=== PATIENT | male | born 1965 | race Caucasian/White ===

== ENCOUNTER 2019-10-14 12:33 | Inpatient (IN) | payer OTHER ==
[2019-10-14 15:16] VITALS: BMI 29.0
--- NOTE | 2019-10-14 15:53 | HP ---
CIWA Score Nausea/Vomitin-No Nausea/No Vomiting Muscle Tremors: 4-Moderate,w/Arms Extend Anxiety: 2 Agitation: 4-Moderately Restless Paroxysmal Sweats: 4-Forehead w/Sweat Beads Orientation: 0-Oriented Tacttile Disturbances: 0-None Auditory Disturbances: 0-None Visual Disturbances: 2-Mild Sensitivity Headache: 3-Moderate CIWA-Ar Total Score: 19 - Admission Criteria OASAS Guidelines: Admission for Medically Managed Detox: Requires at least one of the followin. CIWA greater than 12 2. Seizures within the past 24 hours 3. Delirium tremens within the past 24 hours 4. Hallucinations within the past 24 hours 5. Acute intervention needed for co occurring medical disorder 6. Acute intervention needed for co occurring psychiatric disorder 7. Severe withdrawal that cannot be handled at a lower level of care (continued vomiting, continued diarrhea, abnormal vital signs) requiring intravenous medication and/or fluids 8. Admitting History and Physical - Smoking History Smoking history: Current every day smoker Have you smoked in the past 12 months: Yes Aproximately how many cigarettes per day: 6 - Alcohol/Substance Use Hx Alcohol Use: Yes Admission ROS S - HPI Allergies/Adverse Reactions: Allergies Allergy/AdvReac Type Severity Reaction Status Date / Time No Known Allergies Allergy Verified 12/11/17 17:06 History of Present Illness: PT HERE REQUESTING DETOX FROM ETOH USE , INTOXICATED, BRENDA 0.341 CURRENT DAILY USE 1 BOTTLE VODKA AND 12 BEERS, + W/D SEIZURES , LATEST USE TODAY . PMHX : PANCREATITIS , OA CELESTE HIPS Exam Limitations: Clinical Condition, Intoxication - Ebola screening Have you traveled outside of the country in the last 21 days: No (N) Have you had contact with anyone from an Ebola affected area: No - Review of Systems Constitutional: No Symptoms Reported EENT: reports: Other (READING GLASSES) Respiratory: reports: Cough (X 6 WEEKS), SOB with Exertion (ON OCCASION, DENIES CURRENT SYMPTOMS) Cardiac: reports: No Symptoms Reported GI: reports: No Symptoms Reported : reports: No Symptoms Reported Musculoskeletal: reports: No Symptoms Reported Integumentary: reports: No Symptoms Reported Neuro: reports: See HPI, Headache, Seizure, Tremors Endocrine: reports: No Symptoms Reported Psychiatric: reports: Agitated, Anxious, Disorientated Patient History - Patient Medical History Hx Anemia: No Hx Asthma: No Hx Chronic Obstructive Pulmonary Disease (COPD): No Hx Cancer: No Hx Cardiac Disorders: No Hx Congestive Heart Failure: No Hx Hypertension: No Hx Pacemaker: No Hx Seizures: Yes (alcohol related once in 2012) Hx Dementia: No Hx Diabetes: No Hx Gastrointestinal Disorders: No Hx Liver Disease: No Hx Genitourinary Disorders: No Hx Sexually Transmitted Disorders: No Hx Renal Disease (ESRD): No Hx Thyroid Disease: No Hx Human Immunodeficiency Virus (HIV): No (neg. 2011) Hx Hepatitis C: No Hx Depression: No Hx Suicide Attempt: No Hx Bipolar Disorder: No Hx Schizophrenia: No - Patient Surgical History Past Surgical History: Yes Hx Neurologic Surgery: No Hx Cataract Extraction: No Hx Cardiac Surgery: No Hx Lung Surgery: No Hx Breast Surgery: No Hx Breast Biopsy: No Hx Abdominal Surgery: No Hx Appendectomy: No Hx Cholecystectomy: No Hx Genitourinary Surgery: No Hx Section: No Hx Orthopedic Surgery: Yes (bilateral hip sx in 2011) Anesthesia Reaction: No - PPD History Date: 12/13/17 - Smoking Cessation Smoking history: Current every day smoker Have you smoked in the past 12 months: Yes Aproximately how many cigarettes per day: 6 Cigars Per Day: 0 Hx Chewing Tobacco Use: No Initiated information on smoking cessation: No - Substances abused Alcohol Substance route: Oral Frequency: Daily Amount used: 1 pint vodka/ 6pk beers Age of first use: 14 Date of last use: 10/14/19 Admission Physical Exam [facility] - Vital Signs Vital Signs: Vital Signs - 24 hr 10/14/19 14:06 Temperature 97.9 F Pulse Rate 83 Respiratory 18 Rate Blood Pressure 123/63 - Physical General Appearance: Yes: Disheveled, Moderate Distress, Severe Distress, Alcohol on Breath, Intoxicated, Tremorous, Sweating, Anxious HEENTM: Yes: EOMI, Hearing grossly Normal, Normocephalic, Normal Voice Respiratory: Yes: Chest Non-Tender, No Respiratory Distress, No Accessory Muscle Use, Rhonchi (CELESTE LUNG BARRY) Neck: Yes: No masses,lesions,Nodules, Trachea in good position Cardiology: Yes: Regular Rhythm, Regular Rate, S1, S2, Tachycardia Abdominal: Yes: Non Tender, Soft Musculoskeletal: Yes: Other (STAGGERING GAIT) Extremities: Yes: Non-Tender, Tremors, Erythema (REINA COMPLEXION) Neurological: Yes: Disoriented Integumentary: Yes: Warm - Diagnostic (1) Alcohol intoxication Current Visit: Yes Status: Acute Qualifiers: Complication of substance-induced condition: uncomplicated Qualified Code(s ): F10.920 - Alcohol use, unspecified with intoxication, uncomplicated Breathalyzer - Breathalyzer Breathalyzer: 0.341 Urine Drug Screen - Test Device Lot number: [id number] Expiration date: 04/29/21 - Control Is test valid?: Yes - Results Drug screen NEGATIVE: Yes Inpatient Rehab Admission - Rehab Decision to Admit Inpatient rehab admission?: No
[2019-10-14] MEDS ORDERED: MAG HYDROX/AL HYDROX/SIMETH 30 ML UNIT-DOSE CUP PO PRN (16:02)
[2019-10-14] MEDS ORDERED: MENTHOL/PHENOL 1 EACH UD MM PRN (16:02)
[2019-10-14] MEDS ORDERED: MAGNESIUM HYDROX 2400MG/30ML ORAL SUSPENSION 30 ML CUP PO PRN (16:02)
[2019-10-14] MEDS ORDERED: BISMUTH SUBSALICYLATE 524 MG/30 ML UD PO PRN (16:02)
[2019-10-14] MEDS ORDERED: guaiFENesin 200 MG/10 ML 10 ML UNIT-DOSE CUPS PO PRN (16:02)
[2019-10-14] MEDS ORDERED: ALBUTEROL SO4 2.5/IPRATROPIUM 0.5 INH SOL 3 ML VIAL.NEB. NEB PRN (16:02)
[2019-10-14] MEDS ORDERED: MAGNESIUM CITRATE 300 ML BOTTLE PO PRN (16:02)
[2019-10-14] MEDS ORDERED: IBUPROFEN 400 MG TABLET (FP) PO PRN (16:02)
[2019-10-14] MEDS ORDERED: hydrOXYzine PAMOATE 25 MG CAPSULE (FP) PO PRN (16:02)
[2019-10-14] MEDS ORDERED: ACETAMINOPHEN 325 MG TABLET (FP) PO PRN ×2 (16:02)
[2019-10-14] MEDS ORDERED: MELATONIN 5 MG TABLETS PO PRN (16:02)
[2019-10-14] MEDS ORDERED: chlordiazePOXIDE HCL 25 MG CAPSULE PO PRN (16:04)
[2019-10-14] MEDS: chlordiazePOXIDE HCL 25 MG CAPSULE PO SCH ×2 (17:03→22:39)
[2019-10-14] MEDS: THIAMINE HCL 100 MG TABLET (FP) PO SCH (22:39)
[2019-10-15] MEDS: chlordiazePOXIDE HCL 25 MG CAPSULE PO SCH ×4 (06:28→22:33)
[2019-10-15] MEDS: PRENATAL VITAMINS W/ FOLIC ACID TABLET (FP) PO SCH (11:32)
--- NOTE | 2019-10-15 11:32 | PN ---
BHS CIWA - CIWA Score Nausea/Vomitin-No Nausea/No Vomiting Muscle Tremors: 4-Moderate,w/Arms Extend Anxiety: 3 Agitation: 0-Normal Activity Paroxysmal Sweats: 2 Orientation: 0-Oriented Tacttile Disturbances: 1-Very Mild Itch/Numbness Auditory Disturbances: 0-None Visual Disturbances: 1-Very Mild Sensitivity Headache: 1-Very Mild CIWA-Ar Total Score: 12 BHS Progress Note (SOAP) Subjective: Patient is a 54 yo male with hx of alcohol dependence on librium detox protocol c/o of fatigues, shakes, chills Objective: 10/15/19 11:30 Vital Signs Temperature 97.5 F L 10/15/19 09:57 Pulse Rate 80 10/15/19 09:57 Respiratory Rate 18 10/15/19 09:57 Blood Pressure 143/96 10/15/19 09:57 O2 Sat by Pulse Oximetry (%) Labs pending Assessment: 10/15/19 11:32 Aox3 no acute distress + hands tremors d/t ETOH withdrawal full ROM no gait disturbance withdrawal sx Plan: increase fluids labs pending continue detox continue to monitor
[2019-10-15 11:35] LABS: HEMATOCRIT 38.1 % (35.4-49); HEMOGLOBIN 13.4 GM/dL (11.7-16.9); MCHC 35.1 g/dl (32.0-35.9); MEAN CELL VOLUME 99.7 fl (80-96); PLATELET COUNT 105 K/MM3 (134-434); RBC 3.82 M/mm3 (4.00-5.60); RDW 14.3 % (11.9-15.9); WHITE BLOOD COUNT 4.3 K/mm3 (4.0-10.0)
[2019-10-15 11:40] LABS: ALBUMIN 4.4 g/dl (3.4-5.0); BLOOD UREA NITROGEN 7.9 mg/dL (7-18); CALCIUM 9.7 mg/dL (8.5-10.1); CREATININE 0.7 mg/dL (0.55-1.3); POTASSIUM 3.7 mmol/L (3.5-5.1); TOT PROT 7.2 g/dl (6.4-8.2)
[2019-10-15] MEDS ORDERED: FLU VACCINE QUAD 60 MCG/0.5 ML (MDV 19-20) IM ONE (12:00)
[2019-10-15] MEDS ORDERED: PNEUMOC 13-VAL CONJ-DIP CRM/PF 0.5 ML DISP.SYRIN IM ONE (12:00)
[2019-10-15] MEDS ORDERED: PNEUMOCOCCAL 23 VACCINE 0.5 ML VIAL IM ONE (12:00)
[2019-10-15] MEDS: THIAMINE HCL 100 MG TABLET (FP) PO SCH (22:33)
[2019-10-16] MEDS: chlordiazePOXIDE HCL 25 MG CAPSULE PO SCH ×4 (05:21→22:48)
[2019-10-16] MEDS ORDERED: cloNIDine HCL 0.1 MG TABLET PO ONE (09:50)
[2019-10-16] MEDS: PRENATAL VITAMINS W/ FOLIC ACID TABLET (FP) PO SCH (10:09)
[2019-10-16] MEDS ORDERED: TRIMETHOBENZAMIDE HCL 200MG/2ML INJ IM ONE (11:19)
[2019-10-16] MEDS ORDERED: ONDANSETRON *ODT* 4 MG TABLET SL PRN (11:20)
--- NOTE | 2019-10-16 11:23 | PN ---
S CIWA - CIWA Score Nausea/Vomitin-No Nausea/No Vomiting Muscle Tremors: 3 Anxiety: 3 Agitation: 3 Paroxysmal Sweats: 2 Orientation: 0-Oriented Tacttile Disturbances: 0-None Auditory Disturbances: 0-None Visual Disturbances: 0-None Headache: 0-None Present CIWA-Ar Total Score: 11 BHS Progress Note (SOAP) Subjective: sweats shakes nausea body aches restless Objective: 10/16/19 11:22 Vital Signs Temperature 98.3 F 10/16/19 09:31 Pulse Rate 84 10/16/19 09:31 Respiratory Rate 17 10/16/19 09:31 Blood Pressure 149/104 H 10/16/19 09:31 O2 Sat by Pulse Oximetry (%) Laboratory Tests 10/15/19 10/15/19 10/15/19 08:20 08:20 08:20 WBC 4.3 RBC 3.82 L Hgb 13.4 Hct 38.1 MCV 99.7 H MCH 35.0 H MCHC 35.1 RDW 14.3 Plt Count 105 L D MPV 8.0 Sodium 142 Potassium 3.7 Chloride 107 Carbon Dioxide 32 Anion Gap 4 L BUN 7.9 Creatinine 0.7 Est GFR (CKD-EPI)AfAm 122.27 Est GFR (CKD-EPI)NonAf 105.50 Random Glucose 91 Calcium 9.7 Total Bilirubin 1.0 AST 124 H ALT 72 H Alkaline Phosphatase 50 Total Protein 7.2 Albumin 4.4 RPR Titer Nonreactive aaox3 ambulating no acute distress Assessment: 10/16/19 11:33 withdrawals Plan: tigan IM x one zofran sl prn continue detox clonidine 0.1mg x one monitor BP
--- NOTE | 2019-10-16 13:13 | PN ---
S Progress Note Note: pt stats his knees buckled and caused him to fall. pt states he did not fall and hit is head. pt states he only bumped his chin. skin assessed, no bruising, no cuts, no skin tear noted. pt denies of pain or discomfort. pt was asked if he wants to go to hospital for a check up, pt states he is ok and no. pt was advised to ask for tylenol or motrin prn for pain, and if there are any changes to advise the nurse and we can send him to ED. cane for ambulating ordered.
[2019-10-16] MEDS ORDERED: chlordiazePOXIDE HCL 25 MG CAPSULE PO ONE (14:00)
--- NOTE | 2019-10-16 16:12 | PN ---
[facility] Progress Note Note: pt was seen very tremulous and shaky insisting on leaving and states I see my next to me. Pt is not safe nor in any mental condition to leave on his own. Pt will be sent to [place] ED for evaluation. unable to give report; no one came on the phone for report. pt sent to ED for eval.
[2019-10-16 18:27] VITALS: BP 142/93; PULSE 83; TEMP 97.1
[2019-10-16] MEDS: THIAMINE HCL 100 MG TABLET (FP) PO SCH (22:49)
[2019-10-17] MEDS ORDERED: chlordiazePOXIDE HCL 10 MG CAPSULE PO PRN
[2019-10-17] MEDS ORDERED: chlordiazePOXIDE HCL 10 MG CAPSULE PO SCH (05:00)
[2019-10-18] MEDS ORDERED: chlordiazePOXIDE HCL 10 MG CAPSULE PO SCH (05:00)
--- NOTE | 2019-10-18 15:28 | DS ---
[facility] Detox Discharge Summary Admission Date: 10/14/19 - History Present History: Alcohol Dependence - Physical Exam Results Vital Signs: Vital Signs Temperature 97.1 F L 10/16/19 18:26 Pulse Rate 83 10/16/19 18:26 Respiratory Rate 18 10/16/19 18:26 Blood Pressure 142/93 10/16/19 18:26 O2 Sat by Pulse Oximetry (%) Pertinent Admission Physical Exam Findings: Vital Signs Temperature 97.1 F L 10/16/19 18:26 Pulse Rate 83 10/16/19 18:26 Respiratory Rate 18 10/16/19 18:26 Blood Pressure 142/93 10/16/19 18:26 O2 Sat by Pulse Oximetry (%) Laboratory Tests 10/15/19 10/15/19 10/15/19 08:20 08:20 08:20 WBC 4.3 RBC 3.82 L Hgb 13.4 Hct 38.1 MCV 99.7 H MCH 35.0 H MCHC 35.1 RDW 14.3 Plt Count 105 L D MPV 8.0 Sodium 142 Potassium 3.7 Chloride 107 Carbon Dioxide 32 Anion Gap 4 L BUN 7.9 Creatinine 0.7 Est GFR (CKD-EPI)AfAm 122.27 Est GFR (CKD-EPI)NonAf 105.50 POC Glucometer Random Glucose 91 Calcium 9.7 Total Bilirubin 1.0 AST 124 H ALT 72 H Alkaline Phosphatase 50 Total Protein 7.2 Albumin 4.4 RPR Titer Nonreactive 10/16/19 18:21 WBC RBC Hgb Hct MCV MCH MCHC RDW Plt Count MPV Sodium Potassium Chloride Carbon Dioxide Anion Gap BUN Creatinine Est GFR (CKD-EPI)AfAm Est GFR (CKD-EPI)NonAf POC Glucometer 124 Random Glucose Calcium Total Bilirubin AST ALT Alkaline Phosphatase Total Protein Albumin RPR Titer pt began to act strangely, hallucination stating his is there next to him. pt is awake and alert but not to place, time. pt will be sent to [facility] ED for evaluation. - Medication Discharge Medications: Ambulatory Orders Unobtainable 10/16/19 - Diagnosis (1) Delirium tremens Status: Acute (2) Abrasion of face Status: Acute (3) Alcohol dependence with withdrawal Status: Acute Qualifiers: Complication of substance-induced condition: uncomplicated Qualified Code(s ): F10.230 - Alcohol dependence with withdrawal, uncomplicated (4) Alcohol induced insomnia Status: Acute (5) Alcohol intoxication Status: Acute Qualifiers: Complication of substance-induced condition: uncomplicated Qualified Code(s ): F10.920 - Alcohol use, unspecified with intoxication, uncomplicated (6) Anxious mood Status: Acute (7) Difficulty sleeping Status: Acute (8) Wheezing Status: Acute (9) Chronic alcoholism Status: Chronic (10) History of seizure Status: Chronic (11) Nicotine dependence Status: Chronic Qualifiers: Nicotine product type: cigarettes (12) Drug-induced mood disorder Status: Suspected (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
[2019-10-19] MEDS ORDERED: chlordiazePOXIDE HCL 10 MG CAPSULE PO ONE (05:00)
--- NOTE | 2019-10-22 08:48 | CONSULT ---
Consult Detox [facility] Reason for Current Admission/Consult: Patient is alcohol dependent and intoxicated on admission and then experienced delirium tremens and transferred to [facility] followed by ICU stay for stabilization and now on the floor. - History History of Present Illness: Patient is a 54 year old man with a PMH of Alcohol abuse (last drink per intake at [facility] was 10/14/2018) transferred to the emergency department with hallucinations with tremors. Per the charts, he was "disoriented" at intake on 10/14/2018 at [facility], however was alert and oriented x3 on 10/15/2018, his second day of admission to [facility], but with tremors. The patient began having hallucinations while at [facility] on 10/16/19 and had a questionable fall that was unwitnessed. On review of labs his ammonia level was elevated on when he became disoriented and floridly hallucinating. He was agitated in the ER and was put in restraints and also got IV diazepam, ativan, phenobarb and librium. He was then transferred to ICU care to stabilize and continue Ativan as diazepam was unavailable. He is still under detox with Ativan and sedated but no longer in tremens as following days 10/18-10/21/19. - History Source History Provided By: Medical Record Limitations to Obtaining History: Other (sedated) - Alcohol/Substance Use Hx Alcohol Use: Yes Hx Substance Use: No Hx Substance Use Treatment: Yes (detoxes in the past) - Current Drug/Alcohol Use Alcohol Route: Oral Frequency: Daily Amount used: 1 pint vodka daily plus beers Age of first use: 16 Date of Last Use: 10/14/19 - Past Medical History Additional Medical History: seizures from alcohol withdrawal in the past - Past Surgical History Additional Surgical History: B/L Hip surgeries 2011 Assessment Plan - Plan Plan: 1. Alcohol Dependence s/p delirium tremens: I would re-check an ammonia level. Patient too sedated to do CIWA scale. If patient is more alert as the Ativan Detox protocol proceeds and his ammonia if back to lower levels without any more hallucinations, then he can be transferred back to [facility] for continuation of detox or proceed to rehab if he so wishes. Perhaps the sedation is from the various medications given to him while in tremens including phenobarbital, valium and ativan. I would continue the Ativan even though LFT's seem to be not elevated. However, repeat LFT's would not be unwarranted. Also noted elevated eosinophil absolute and computed counts, which might be due to reaction to phenobarbital. Perhaps patient has other allergies as well. Rule out other causes of elevated eosinophils. Dr. Kc - Medication Detox Regimen/Protocol: Ativan (Continue Ativan as detox protocol.)
== END 2019-10-17 | disposition short-term general hospital (02) | DRG 775 ==
LOC: YASAS 12:33 → Y6N 16:30
PROVIDERS: ADMIT Allergy & Immunology; ATTEND Allergy & Immunology
PROC: HZ2ZZZZ Detoxification Services for Substance Abuse Treatment (ICD-10-PCS; principal; 2019-10-14)
DX: F10.230 Alcohol dependence with withdrawal, uncomplicated (principal); F10.220 Alcohol dependence with intoxication, uncomplicated; F10.231 Alcohol dependence with withdrawal delirium; F17.210 Nicotine dependence, cigarettes, uncomplicated; F19.24 Other psychoactive substance dependence with psychoactive substance-induced mood disorder; F41.9 Anxiety disorder, unspecified; R06.2 Wheezing; R00.0 Tachycardia, unspecified; S00.81XA Abrasion of other part of head, initial encounter; W18.30XA Fall on same level, unspecified, initial encounter; Y93.9 Activity, unspecified; Y92.239 Unspecified place in hospital as the place of occurrence of the external cause; Z94.4 Liver transplant status; Z86.69 Personal history of other diseases of the nervous system and sense organs
CPT/HCPCS: 36415; 80053; 82962; 85027; 86593; J0735

== ENCOUNTER 2019-10-16 16:49 | Inpatient (IN) | payer OTHER ==
--- NOTE | 2019-10-16 17:50 | PDOC ---
History of Present Illness - General Chief Complaint: Alcohol intoxication Stated Complaint: Intoxicated Time Seen by Provider: 10/16/19 17:48 History Source: Patient Exam Limitations: No Limitations - History of Present Illness Initial Comments: 54 yo M with a hx of ETOH abuse (last drink per intake at [facility] was 2018) presents to the emergency department with hallucinations with tremors. Per the charts, he was "disoriented" at intake on 10/14/2018, however was alert and oriented x3 on 10/15/2018 but with tremors. The patient began having hallucinations while at [facility] today and had a questionable fall that was unwitnessed. Alert and oriented to self only; unable to recall when he had last drink with active hallucinations. Per the patient, he is concerned about his "missing" and daughter and is pointing to various patients claiming that it was their . Denies the following: pain, fevers, chest pain, SOB, abdominal pain. 10/16/19 18:46 Past History - Past Medical History Allergies/Adverse Reactions: Allergies Allergy/AdvReac Type Severity Reaction Status Date / Time No Known Allergies Allergy Verified 12/11/17 17:06 Home Medications: Ambulatory Orders Folic Acid - 1 mg PO DAILY tablet 10/28/19 Multivitamins [Multivit ([facility] Formulary)] 1 tab PO DAILY tab 10/28/19 Ofloxacin 0.3% Ophth Soln [Ocuflox -] 1 drop OU Q4HWA drops 10/28/19 Thiamine HCl [Vitamin B1 -] 100 mg PO DAILY tablet 10/28/19 Anemia: No Asthma: No Cancer: No Cardiac Disorders: No COPD: No CHF: No Dementia: No Diabetes: No GI Disorders: No Disorders: No HTN: No Kidney Stones: No Liver Disease: No Seizures: Yes (alcohol related once in 2012) Thyroid Disease: No - Surgical History Abdominal Surgery: No Appendectomy: No Cardiac Surgery: No Cholecystectomy: No Lung Surgery: No Neurologic Surgery: No Orthopedic Surgery: Yes (bilateral hip sx in 2011) - Reproductive History Testicular Surgery: No - Psycho Social/Smoking Cessation Hx Smoking History: Current every day smoker Have you smoked in the past 12 months: Yes Number of Cigarettes Smoked Daily: 8 Cigars Per Day: 0 Information on smoking cessation initiated: No 'Breaking Loose' booklet given: 12/11/17 Hx Alcohol Use: Yes Drug/Substance Use Hx: No Substance Use Type: Alcohol Hx Substance Use Treatment: Yes Review of Systems - Review of Systems Able to Perform ROS?: No (AMS) Is the patient limited Albanian proficient: No *Physical Exam - Vital Signs Last Vital Signs Temp Pulse Resp BP Pulse Ox 97.9 F 76 16 144/94 99 10/16/19 17:12 10/16/19 17:12 10/16/19 17:12 10/16/19 17:12 10/16/19 17:12 - Physical Exam General Appearance: Yes: Nourished, Appropriately Dressed, Mild Distress, Other (hallucinations are active. patient has visible signs of UE tremors with tongue fasciculations. ). No: Alcohol on Breath HEENT: positive: EOMI, ALY, Normal Voice, Symmetrical, Pharynx Normal, Hearing Grossly Normal. negative: Pale Conjunctivae, Scleral Icterus (R), Scleral Icterus (L), Muffled/Hoarse voice, Pharyngeal Erythema, Tonsillar Exudate, Tonsillar Erythema, Nasal Congestion, Rhinorrhea, Excessive drooling Neck: positive: Trachea midline, Supple. negative: Tender, Stridor, Lymphadenopathy (R), Lymphadenopathy (L) Respiratory/Chest: positive: Lungs Clear, Normal Breath Sounds. negative: Chest Tender, Respiratory Distress, Accessory Muscle Use Cardiovascular: positive: Regular Rhythm, Regular Rate, S1, S2. negative: Systolic Murmur Gastrointestinal/Abdominal: positive: Normal Bowel Sounds, Flat, Soft. negative : Tender, Distended, Guarding, Rebound Lymphatic: negative: Adenopathy Musculoskeletal: positive: Normal Inspection. negative: CVA Tenderness, Vertebral Tenderness Extremity: positive: Normal Capillary Refill, Normal Inspection, Normal Range of Motion, Other (tremors throughout the UE and LE. intact sensation. intact strength). negative: Tender Integumentary: positive: Normal Color, Dry, Warm Neurologic: positive: Alert. negative: Fully Oriented (oriented to self only), Normal Mood/Affect (hallucinations) ED Treatment Course - LABORATORY CBC & Chemistry Diagram: 10/28/19 07:33 10/28/19 07:33 Medical Decision Making - Medical Decision Making 54 yo M with a hx of ETOH abuse (last drink per intake at [facility] was 2018) presents to the emergency department with hallucinations with tremors. Initial vitals: Initial Vital Signs Temp Pulse Resp BP Pulse Ox 97.9 F 76 16 144/94 99 10/16/19 17:12 10/16/19 17:12 10/16/19 17:12 10/16/19 17:12 10/16/19 17:12 work up: Patient presents to the emergency department with tremors, hallucinations, with last alcoholic drink on 10/14/2019 prior to [facility] admission. the patient is having active hallucinations of his and daughter that are not at bedside. Likely the patient is having alcohol withdrawal with delirium >48 hours post last drink consistent with delirium tremens. While the patient does not have autonomic instability at this point, still consistent with the diagnosis as DT can have absence of autonomic instability. The patient is actively hallucinating and diaphoretic. I will place an IV with lab work up for planned treatment and admission for DT. Laboratory Tests 10/16/19 10/16/19 10/16/19 18:18 18:18 18:18 WBC 5.2 RBC 3.95 L Hgb 13.6 Hct 39.4 MCV 99.5 H MCH 34.5 H MCHC 34.6 RDW 14.1 Plt Count 115 L MPV 8.2 Absolute Neuts (auto) 4.2 Neutrophils % 79.8 Lymphocytes % 8.9 Monocytes % 9.8 Eosinophils % 0.9 Basophils % 0.6 Nucleated RBC % 0 PT with INR INR VBG pH POC VBG pCO2 POC VBG pO2 VBG HCO3 VBG O2 Sat (Madina) VBG Base Excess Sodium Potassium Chloride Carbon Dioxide Anion Gap BUN Creatinine Est GFR (CKD-EPI)AfAm Est GFR (CKD-EPI)NonAf Random Glucose Calcium Total Bilirubin AST ALT Alkaline Phosphatase Ammonia 43.30 H Total Protein Albumin Alcohol, Quantitative < 3 Methyl Alcohol Level 10/16/19 10/16/19 10/16/19 18:18 18:18 18:18 WBC RBC Hgb Hct MCV MCH MCHC RDW Plt Count MPV Absolute Neuts (auto) Neutrophils % Lymphocytes % Monocytes % Eosinophils % Basophils % Nucleated RBC % PT with INR 10.80 INR 0.92 VBG pH POC VBG pCO2 POC VBG pO2 VBG HCO3 VBG O2 Sat (Madina) VBG Base Excess Sodium 141 Potassium 3.7 Chloride 106 Carbon Dioxide 29 Anion Gap 6 L BUN 9.3 Creatinine 0.7 Est GFR (CKD-EPI)AfAm 122.27 Est GFR (CKD-EPI)NonAf 105.50 Random Glucose 109 H Calcium 10.5 H Total Bilirubin 0.9 AST 72 H ALT 61 Alkaline Phosphatase 56 Ammonia Total Protein 7.8 Albumin 4.8 Alcohol, Quantitative Methyl Alcohol Level Negative 10/16/19 18:18 WBC RBC Hgb Hct MCV MCH MCHC RDW Plt Count MPV Absolute Neuts (auto) Neutrophils % Lymphocytes % Monocytes % Eosinophils % Basophils % Nucleated RBC % PT with INR INR VBG pH 7.39 POC VBG pCO2 49.1 POC VBG pO2 < 49 H VBG HCO3 29.3 H VBG O2 Sat (Madina) 46.7 L VBG Base Excess 3.9 H Sodium Potassium Chloride Carbon Dioxide Anion Gap BUN Creatinine Est GFR (CKD-EPI)AfAm Est GFR (CKD-EPI)NonAf Random Glucose Calcium Total Bilirubin AST ALT Alkaline Phosphatase Ammonia Total Protein Albumin Alcohol, Quantitative Methyl Alcohol Level methanol level was checked due to patient stating he has been drinking alcohol from unusual sources when he can. no anion gap noted on labs and no acidosis noted. Patient attempting to remove himself from the bed multiple times; restraints were placed onto the patient. Due to patient's clinical condition, 20 mg of valium was ordered. After 5 minutes, the patient continued to have tremors with no decrease in symptoms. Another 20 mg of valium was given After approximately 10 minutes, the patient continued to have tremors with no decrease in symptoms now with agitation. 40 mg of valium was ordered. Per pharmacy, there would be no more valium available. Patient was signed out to night team Drs. Banks and Carley. It was decided for the patient to be switched to phenobarbital. In addition, the patient would need a head CT due to a note placed by [facility] the patient may have had an unwitnessed fall while there. Patient has pending head CT. likely the patient will be admitted to ICU for DTs. Banana bag started on the patient. Dispo: guarded Discharge - Discharge Information Problems reviewed: Yes Clinical Impression/Diagnosis: Delirium tremens Condition: Guarded - Follow up/Referral - Patient Discharge Instructions - Post Discharge Activity
[2019-10-16] MEDS ORDERED: diazePAM CARPU-JECT 10 MG/2 ML DISP.SYRIN IVPUSH ONE ×4 (17:59→18:51)
[2019-10-16] MEDS ORDERED: chlordiazePOXIDE HCL 25 MG CAPSULE PO ONE (18:02)
[2019-10-16] MEDS ORDERED: FOLIC ACID INJECTION - 1 MG, THIAMINE HCL 100 MG, MULTIVIT INJECTION ADULT 10 ML in SOD... IVPB ONE ×2 (18:03→23:47)
--- NOTE | 2019-10-16 18:03 | PDOC ---
Attending Attestation - Resident Resident Name: Edvin Moscoso - ED Attending Attestation I have performed the following: I have examined & evaluated the patient, The case was reviewed & discussed with the resident, I agree w/resident's findings & plan, Exceptions are as noted - HPI HPI: 54 yo M history EtOH abuse presents with alcohol withdrawal. He was under treatment by [facility] for the same, but today was found to be confused, requesting to be discharged, but hallucinating as per their notes. In the ED he is unable to give history as he is actively hallucinating. - Physicial Exam PE: GENERAL: Awake, alert. Confused, hallucinating. HEAD: No signs of trauma EYES: PERRLA, EOMI, sclera anicteric, conjunctiva clear ENT: Auricles normal inspection, hearing grossly normal, nares patent, oropharynx clear without exudates. Moist mucosa. +Tongue fasciculations NECK: Normal ROM, supple, no lymphadenopathy, JVD, or masses LUNGS: Breath sounds equal, clear to auscultation bilaterally. No wheezes, and no crackles HEART: Regular rate and rhythm, normal S1 and S2, no murmurs, rubs or gallops ABDOMEN: Soft, nontender, normoactive bowel sounds. No guarding, no rebound. No masses EXTREMITIES: Normal range of motion, no edema. No clubbing or cyanosis. No cords, erythema, or tenderness. +Tremors in the hands NEUROLOGICAL: Cranial nerves II through XII grossly intact. Speech is stuttering. Motor and sensation intact SKIN: Warm, dry, normal turgor, no rashes or lesions noted. - Medical Decision Making Pt presents in alcohol withdrawal, DTs. Given multiple large doses of valium IV in the ED without significant improvement. He attempted to get out of the bed multiple times and was placed in a hanh to prevent injury, as he was extremely unstable on his feet. As the hospital supply of valium was empty after his 3 doses, will have to switch to another agent- ativan vs phenobarbital. D/w Dr. Cruz, as this occurred at shift change. She will continue with phenobarb. Awaiting labs and CTH. Will admit to ICU.
[2019-10-16] MEDS ORDERED: diazePAM CARPU-JECT 10 MG/2 ML DISP.SYRIN ONE ×3 (18:10→18:57)
[2019-10-16] MEDS ORDERED: chlordiazePOXIDE HCL 25 MG CAPSULE ONE (18:39)
[2019-10-16 19:07] LABS: BASO % 0.6 % (0-2.0); EOS % 0.9 % (0-4.5); HEMATOCRIT 39.4 % (35.4-49); HEMOGLOBIN 13.6 GM/dL (11.7-16.9); LYMPH % 8.9 % (8-40); MCH 34.5 pg (25.7-33.7); MCHC 34.6 g/dl (32.0-35.9); MEAN CELL VOLUME 99.5 fl (80-96); MEAN PLT VOLUME 8.2 fl (7.5-11.1); MONO % 9.8 % (3.8-10.2); NEUT % 79.8 % (42.8-82.8); PLATELET COUNT 115 K/MM3 (134-434); RBC 3.95 M/mm3 (4.00-5.60); RDW 14.1 % (11.9-15.9); VENOUS PC02 49.1 mmHg (38-52); VENOUS PH 7.39 (7.31-7.41); WHITE BLOOD COUNT 5.2 K/mm3 (4.0-10.0)
[2019-10-16 19:08] LABS: VENOUS PO2 < 49 mmHg (28-48)
[2019-10-16] MEDS ORDERED: PHENobarbital SODIUM 65 MG/1 ML VIAL IVPUSH ONE ×4 (19:11→21:07)
[2019-10-16] MEDS ORDERED: PHENobarbital SODIUM 65 MG/1 ML VIAL ONE ×5 (19:14→21:14)
[2019-10-16 19:23] LABS: INR 0.92 (0.83-1.09); PROTHROMBIN TIME (PATIENT) 10.8 SEC (9.7-13.0)
[2019-10-16 19:36] LABS: POTASSIUM 3.7 mmol/L (3.5-5.1)
[2019-10-16 19:37] LABS: ALBUMIN 4.8 g/dl (3.4-5.0); BILIRUBIN,TOTAL 0.9 mg/dL (0.2-1); BLOOD UREA NITROGEN 9.3 mg/dL (7-18); CALCIUM 10.5 mg/dL (8.5-10.1); CREATININE 0.7 mg/dL (0.55-1.3); TOT PROT 7.8 g/dl (6.4-8.2)
--- NOTE | 2019-10-16 20:02 | PDOC ---
*Physical Exam - Vital Signs Last Vital Signs Temp Pulse Resp BP Pulse Ox 97.9 F 96 H 20 148/106 H 96 10/16/19 17:12 10/16/19 18:52 10/16/19 18:52 10/16/19 18:52 10/16/19 18:52 ED Treatment Course - LABORATORY CBC & Chemistry Diagram: 10/17/19 06:40 10/17/19 06:40 - ADDITIONAL ORDERS Additional order review: Laboratory Results 10/16/19 10/16/19 10/16/19 18:18 18:18 18:18 PT with INR 10.80 INR 0.92 VBG pH 7.39 POC VBG pCO2 49.1 POC VBG pO2 < 49 H VBG HCO3 29.3 H VBG O2 Sat (Madina) 46.7 L VBG Base Excess 3.9 H Sodium 141 Potassium 3.7 Chloride 106 Carbon Dioxide 29 Anion Gap 6 L BUN 9.3 Creatinine 0.7 Est GFR (CKD-EPI)AfAm 122.27 Est GFR (CKD-EPI)NonAf 105.50 Random Glucose 109 H Calcium 10.5 H Total Bilirubin 0.9 AST 72 H ALT 61 Alkaline Phosphatase 56 Total Protein 7.8 Albumin 4.8 10/16/19 18:18 RBC 3.95 L MCV 99.5 H MCHC 34.6 RDW 14.1 MPV 8.2 Neutrophils % 79.8 Lymphocytes % 8.9 Monocytes % 9.8 Eosinophils % 0.9 Basophils % 0.6 - Medications Given in the ED: ED Medications Discontinued Medications Generic Name Dose Route Start Last Admin Trade Name Freq PRN Reason Stop Dose Admin Chlordiazepoxide HCl 50 mg 10/16/19 18:02 10/16/19 18:44 Librium - PO 10/16/19 18:03 50 mg ONCE ONE Administration Diazepam 20 mg 10/16/19 18:05 10/16/19 18:10 Valium Injection - IVPUSH 10/16/19 18:06 20 mg ONCE ONE Administration Diazepam 20 mg 10/16/19 18:32 10/16/19 18:38 Valium Injection - IVPUSH 10/16/19 18:33 20 mg ONCE ONE Administration Diazepam 40 mg 10/16/19 18:51 10/16/19 19:00 Valium Injection - IVPUSH 10/16/19 18:52 40 mg ONCE ONE Administration Phenobarbital 260 mg 10/16/19 19:11 10/16/19 19:15 Phenobarbital Injection - IVPUSH 10/16/19 19:12 260 mg ONCE ONE Administration Medical Decision Making - Medical Decision Making 10/16/19 20:00 Received pateint on signout; sent from [facility] in DTs. Pt received 80mg valium phenobarb 260mg; then 130mg given Pt remains shaky 10/16/19 20:02 Alcohol <3 10/16/19 20:23 Pt is improving; He received another 130mg of phenobarb and 4mg of ativan. In another 30 minutes, we will treat with another 130mg phenobarb; then we will continue with doses of 50mg phenobarb Q30 min. Ativan pushes are PRN. Banana bag is running. BP stable and HR is 87; O2sat 100% on RA 10/16/19 20:51 Pt is sleeping/snoring; HR is 68; BP is 180 systolic. He is not shaking at this time. We will take him to CT scan while he is stable 10/16/19 21:11 Summary of meds given thus far: librium 50mg valium 80mg ativan 12mg phenobarb 260mg+ [id number]. We will now continue to 50mg phenobarb as needed 10/16/19 21:55 CT head appears normal; no acute bleeds/trauma CT cspine also appears WNL BP is 129/80; O2sat 98% 2L NC HR is 69 Pt is sleeping and snoring comfortably 10/16/19 22:[address] normal Discharge - Discharge Information Problems reviewed: Yes Clinical Impression/Diagnosis: Delirium tremens Condition: Critical - Follow up/Referral - Patient Discharge Instructions - Post Discharge Activity
[2019-10-16] MEDS ORDERED: LORazepam 2 MG/ML SDV VIAL ONE ×3 (20:04→21:00)
--- NOTE | 2019-10-16 20:06 | PDOC ---
*Physical Exam - Vital Signs Last Vital Signs Temp Pulse Resp BP Pulse Ox 97.9 F 96 H 20 148/106 H 96 10/16/19 17:12 10/16/19 18:52 10/16/19 18:52 10/16/19 18:52 10/16/19 18:52 ED Treatment Course - LABORATORY CBC & Chemistry Diagram: 10/16/19 18:18 10/16/19 18:18 - ADDITIONAL ORDERS Additional order review: Laboratory Results 10/16/19 10/16/19 10/16/19 18:18 18:18 18:18 PT with INR 10.80 INR 0.92 VBG pH 7.39 POC VBG pCO2 49.1 POC VBG pO2 < 49 H VBG HCO3 29.3 H VBG O2 Sat (Madina) 46.7 L VBG Base Excess 3.9 H Sodium 141 Potassium 3.7 Chloride 106 Carbon Dioxide 29 Anion Gap 6 L BUN 9.3 Creatinine 0.7 Est GFR (CKD-EPI)AfAm 122.27 Est GFR (CKD-EPI)NonAf 105.50 Random Glucose 109 H Calcium 10.5 H Total Bilirubin 0.9 AST 72 H ALT 61 Alkaline Phosphatase 56 Total Protein 7.8 Albumin 4.8 Alcohol, Quantitative 10/16/19 18:18 PT with INR INR VBG pH POC VBG pCO2 POC VBG pO2 VBG HCO3 VBG O2 Sat (Madina) VBG Base Excess Sodium Potassium Chloride Carbon Dioxide Anion Gap BUN Creatinine Est GFR (CKD-EPI)AfAm Est GFR (CKD-EPI)NonAf Random Glucose Calcium Total Bilirubin AST ALT Alkaline Phosphatase Total Protein Albumin Alcohol, Quantitative < 3 10/16/19 18:18 RBC 3.95 L MCV 99.5 H MCHC 34.6 RDW 14.1 MPV 8.2 Neutrophils % 79.8 Lymphocytes % 8.9 Monocytes % 9.8 Eosinophils % 0.9 Basophils % 0.6 - Medications Given in the ED: ED Medications Discontinued Medications Generic Name Dose Route Start Last Admin Trade Name Freq PRN Reason Stop Dose Admin Chlordiazepoxide HCl 50 mg 10/16/19 18:02 10/16/19 18:44 Librium - PO 10/16/19 18:03 50 mg ONCE ONE Administration Diazepam 20 mg 10/16/19 18:05 10/16/19 18:10 Valium Injection - IVPUSH 10/16/19 18:06 20 mg ONCE ONE Administration Diazepam 20 mg 10/16/19 18:32 10/16/19 18:38 Valium Injection - IVPUSH 10/16/19 18:33 20 mg ONCE ONE Administration Diazepam 40 mg 10/16/19 18:51 10/16/19 19:00 Valium Injection - IVPUSH 10/16/19 18:52 40 mg ONCE ONE Administration Phenobarbital 260 mg 10/16/19 19:11 10/16/19 19:15 Phenobarbital Injection - IVPUSH 10/16/19 19:12 260 mg ONCE ONE Administration Medical Decision Making - Critical Care Time Total Critical Care Time (minutes): 45 Critical Care Statement: The care of this patient involved high complexity decision making to prevent further life threatening deterioration of the patient 's condition and/or to evaluate & treat vital organ system(s) failure or risk of failure. - Medical Decision Making Pt received as sign out. Pt oriented to self Pt in DTs at this time s/p 80mg IV Valium Will give Phenobarb 260mg IV once 1914 Phenobarb 130IV once given 1944 Ativan 4mg IV once given 200410/16/19 20:05 Phenobarb 130mg IV once 2044 Ativan 4mg IV once 2099 Phenobarb 50mg IV once 211410/16/19 21:13 B/l wrist/ankle soft restraints and vest restraint for fall risk and pulling at equipment Attempts at redirection and deescalation attempted before pt placed in restraints 10/16/19 21:45 Pt tremors resolved and is now resting comfortably in bed Normotensive, non-tachycardic Arousable to verbal stimuli Pt admitted to ICU for delirium tremens Pt signed out to Selene Admitting 10/17/19 05:08 Discharge - Discharge Information Problems reviewed: Yes Clinical Impression/Diagnosis: Delirium tremens Condition: Critical - Admission Yes - Follow up/Referral - Patient Discharge Instructions - Post Discharge Activity
[2019-10-16] MEDS ORDERED: LACTULOSE 20 GM/30 ML UDC (FOR ORAL USE ONLY) PO ONE (21:09)
--- NOTE | 2019-10-16 21:57 | PN ---
Teaching Attending Note Name of Resident: Jaleel Crabtree ATTENDING PHYSICIAN STATEMENT I saw and evaluated the patient. I reviewed the resident's note and discussed the case with the resident. I agree with the resident's findings and plan as documented. SUBJECTIVE: Patient is a 54 year old man with a PMH of Alcohol abuse (last drink per intake at [facility] was 10/14/2018) presents to the emergency department with hallucinations with tremors. Per the charts, he was "disoriented" at intake on 10/14/2018, however was alert and oriented x3 on 10/15/2018 but with tremors. The patient began having hallucinations while at [facility] today and had a questionable fall that was unwitnessed. Alert and oriented to self only; unable to recall when he had last drink with active hallucinations. Was agitated in the ER and was put in restraints and also got IV diazepam, ativan, phenobarb and librium. Now sedated and unable to provide nay information. OBJECTIVE: Sedated Vital Signs Period Temp Pulse Resp BP Sys/Fraga Pulse Ox Last 24 Hr 97.9 F 70-96 15-20 129-148/82-106 96-100 HEENT: No Jaundice, eye redness or discharge, PERRLA, EOMI. Normocephalic, atraumatic. External ears are normal. No nasal discharge. Neck: Supple, nontender. No palpable adenopathy or thyromegaly. No JVD Chest: Good effort. Clear to auscultation and percussion. Heart: Regular. No S3, rub or murmur Abdomen: Not distended, soft, nontender and no HSM. No rebound or guarding. Normal bowel sounds. Ext: Peripheral pulses intact. No leg edema. Skin: Warm and dry. No petechiae, rash or ecchymosis. Neuro: Sedated. Withdraws to noxious stimuli. Psych: Unable to assess. Current Medications Generic Name Dose Route Start Last Admin Trade Name Freq PRN Reason Stop Dose Admin Chlorhexidine Gluconate 1 applic 10/17/19 22:00 Hibiclens For Decolonization - TP HS RANCHO Dexmedetomidine HCl 200 mcg/ 50 mls @ 3.96 mls/hr 10/17/19 00:00 10/17/19 01: 17 Sodium Chloride IVPB 0.2 mcg/kg/hr TITR RANCHO 3.96 mls/hr Administration 0.2 MCG/KG/HR Sodium Chloride 1,000 mls @ 125 mls/hr 10/17/19 01:15 Normal Saline - IV ASDIR RANCHO Lorazepam 2 mg 10/17/19 00:23 10/17/19 00:45 Ativan Injection - IVPUSH 2 mg Q1H PRN Administration AGITATION Mupirocin 1 applic 10/17/19 10:00 Bactroban Ointment (For Decolonization) - NS 10/22/19 09:59 BID RANCHO Abnormal Lab Results 10/16/19 10/16/19 10/16/19 18:18 18:18 18:18 RBC 3.95 L MCV 99.5 H MCH 34.5 H Plt Count 115 L ABG pCO2 at Pt Temp ABG pO2 at Pt Temp ABG O2 Sat (Measured) POC VBG pO2 VBG HCO3 VBG O2 Sat (Madina) VBG Base Excess Anion Gap 6 L Random Glucose 109 H Calcium 10.5 H AST 72 H Ammonia 43.30 H 10/16/19 10/16/19 18:18 22:45 RBC MCV MCH Plt Count ABG pCO2 at Pt Temp 48.4 H ABG pO2 at Pt Temp 144 H ABG O2 Sat (Measured) 98.8 H POC VBG pO2 < 49 H VBG HCO3 29.3 H VBG O2 Sat (Madina) 46.7 L VBG Base Excess 3.9 H Anion Gap Random Glucose Calcium AST Ammonia Home Medications Medication Instructions Recorded Unobtainable 10/16/19 ASSESSMENT AND PLAN: 1. Alcohol withdrawal syndrome/Delirium tremens - Now on Precedex drip and being admitted to the ICU. Implement CIWA ativan alcohol withdrawal protocol and do neurochecks. Implement seizure, fall and aspiration precautions. Treat with thiamine and folic acid and monitor electrolytes (Ca,Mg,K,P). Once he wakes up, will student services counselor patient about abstaining from alcohol. Will consult project management specialist and refer to alcohol detox upon discharge. No acute abnormality on head CT or C spine CT. EKG shows NSR with no significant changes. Low platelets likely related to alcoholism - will monitor daily. Hypercalcemia is unusual. Will hydrate with IV NS, check phosphate, magnesium and PTH level. NH3 is elevated - once DT resolves and he passes swallow evaluation, will treat with lactulose and rifaximin. Will continue comprehensive care for all of patients comorbid conditions. 2. DVT prophylaxis - Lovenox 40 mg SQ q 24 hours. 3. Advance directives - Full code
[2019-10-16 22:57] LABS: ARTERIAL BLOOD GAS PCO2 48.4 mmHg (35-45); ARTERIAL BLOOD GAS PO2 144 mmHg (80-100); ARTERIAL BLOOD GAS pH 7.35 (7.35-7.45)
[2019-10-16 22:58] LABS: ARTERIAL BLD GAS O2 SATURATION 98.8 % (95-98); ARTERIAL BLOOD GAS BASE EXCESS 0.5 meq/l (-2-2); CARBOXYHEMOGLOBIN 1.2 % (0-2)
--- NOTE | 2019-10-16 23:13 | CONSULT ---
Consultation: REQUESTING PROVIDER: Dr. Tyson CONSULT REQUEST: We have been asked to medically evaluate this patient for ICU management. HISTORY OF PRESENT ILLNESS: 54 M PMH of alcohol abuse, presents to ED from [facility] after unwitnessed fall and tremors and hallucinations. As per chart review patient had last drink approximately 3 days ago. Patient was disoriented on admission to [facility], and was noted to have withdrawal seizures but was alert and oriented the following day. Today he reported tremors and after fall was brought to the [facility] ED. Patient was given 80 mg of IV Valium, 12 mg of IV Ativan, and 570 mg of IV phenobarbital in the emergency department. Patient was not intubated, and kept on 1L NC while in the emergency department, intubation was not done. REVIEW OF SYSTEMS: Patient was not able to participate in ROS. CONSTITUTIONAL: Absent: fever, chills, diaphoresis, generalized weakness, malaise, loss of appetite, weight change HEENT: Absent: rhinorrhea, nasal congestion, throat pain, throat swelling, difficulty swallowing, mouth swelling, ear pain, eye pain, visual changes CARDIOVASCULAR: Absent: chest pain, syncope, palpitations, irregular heart rate, lightheadedness , peripheral edema RESPIRATORY: Absent: cough, shortness of breath, dyspnea with exertion, orthopnea, wheezing, stridor, hemoptysis GASTROINTESTINAL: Absent: abdominal pain, abdominal distension, nausea, vomiting, diarrhea, constipation, melena, hematochezia GENITOURINARY: Absent: dysuria, frequency, urgency, hesitancy, hematuria, flank pain, genital pain MUSCULOSKELETAL: Absent: myalgia, arthralgia, joint swelling, back pain, neck pain SKIN: Absent: rash, itching, pallor HEMATOLOGIC/IMMUNOLOGIC: Absent: easy bleeding, easy bruising, lymphadenopathy, frequent infections ENDOCRINE: Absent: unexplained weight gain, unexplained weight loss, heat intolerance, cold intolerance NEUROLOGIC: Absent: headache, focal weakness or paresthesias, dizziness, unsteady gait, seizure, mental status changes, bladder or bowel incontinence PSYCHIATRIC: Absent: anxiety, depression, suicidal or homicidal ideation, hallucinations. PHYSICAL EXAMINATION Vital Signs - 24 hr 10/16/19 10/16/19 10/16/19 17:12 18:52 20:18 Temperature 97.9 F Pulse Rate 76 Pulse Rate [ 96 H 85 Apical] Respiratory 16 20 18 Rate Blood Pressure 144/94 Blood Pressure 148/106 H 147/100 [Left Arm] O2 Sat by Pulse 99 96 100 Oximetry (%) 10/16/19 21:35 Temperature Pulse Rate Pulse Rate [ 82 Apical] Respiratory 18 Rate Blood Pressure Blood Pressure 129/82 [Left Arm] O2 Sat by Pulse 98 Oximetry (%) GENERAL: Arousable, alert to self, tremelous. HEAD: Normal with no signs of trauma. LUNGS: Breath sounds equal, clear to auscultation bilaterally. No wheezes, and no crackles. No accessory muscle use. HEART: Regular rate and rhythm, normal S1 and S2 without murmur, rub or gallop. ABDOMEN: Soft, nontender, not distended, normoactive bowel sounds, no guarding, no rebound, no masses. MUSCULOSKELETAL: Normal range of motion at all joints. No bony deformities or tenderness. No CVA tenderness. UPPER EXTREMITIES: 2+ pulses, warm, well-perfused. No cyanosis. No clubbing. Cap refill <2 seconds. No peripheral edema. LOWER EXTREMITIES: 2+ pulses, warm, well-perfused. No calf tenderness. No peripheral edema. NEUROLOGICAL: Not responding coherently to examiner or following command. SKIN: Warm, dry, normal turgor, no rashes or lesions noted. Laboratory Results - last 24 hr 10/16/19 10/16/19 10/16/19 18:18 18:18 18:18 WBC 5.2 RBC 3.95 L Hgb 13.6 Hct 39.4 MCV 99.5 H MCH 34.5 H MCHC 34.6 RDW 14.1 Plt Count 115 L MPV 8.2 Absolute Neuts (auto) 4.2 Neutrophils % 79.8 Lymphocytes % 8.9 Monocytes % 9.8 Eosinophils % 0.9 Basophils % 0.6 Nucleated RBC % 0 PT with INR INR Anticoagulation Therapy Puncture Site ABG pH ABG pCO2 at Pt Temp ABG pO2 at Pt Temp ABG HCO3 ABG O2 Sat (Measured) ABG O2 Content ABG Base Excess Raphael Test VBG pH POC VBG pCO2 POC VBG pO2 VBG HCO3 VBG O2 Sat (Madina) VBG Base Excess Carboxyhemoglobin Methemoglobin O2 Delivery Device Oxygen Flow Rate Vent Mode Vent Rate Mechanical Rate Pressure Support Vent Sodium Potassium Chloride Carbon Dioxide Anion Gap BUN Creatinine Est GFR (CKD-EPI)AfAm Est GFR (CKD-EPI)NonAf Random Glucose Calcium Total Bilirubin AST ALT Alkaline Phosphatase Ammonia 43.30 H Total Protein Albumin Alcohol, Quantitative < 3 10/16/19 10/16/19 10/16/19 18:18 18:18 18:18 WBC RBC Hgb Hct MCV MCH MCHC RDW Plt Count MPV Absolute Neuts (auto) Neutrophils % Lymphocytes % Monocytes % Eosinophils % Basophils % Nucleated RBC % PT with INR 10.80 INR 0.92 Anticoagulation Therapy Puncture Site ABG pH ABG pCO2 at Pt Temp ABG pO2 at Pt Temp ABG HCO3 ABG O2 Sat (Measured) ABG O2 Content ABG Base Excess Raphael Test VBG pH 7.39 POC VBG pCO2 49.1 POC VBG pO2 < 49 H VBG HCO3 29.3 H VBG O2 Sat (Madina) 46.7 L VBG Base Excess 3.9 H Carboxyhemoglobin Methemoglobin O2 Delivery Device Oxygen Flow Rate Vent Mode Vent Rate Mechanical Rate Pressure Support Vent Sodium 141 Potassium 3.7 Chloride 106 Carbon Dioxide 29 Anion Gap 6 L BUN 9.3 Creatinine 0.7 Est GFR (CKD-EPI)AfAm 122.27 Est GFR (CKD-EPI)NonAf 105.50 Random Glucose 109 H Calcium 10.5 H Total Bilirubin 0.9 AST 72 H ALT 61 Alkaline Phosphatase 56 Ammonia Total Protein 7.8 Albumin 4.8 Alcohol, Quantitative 10/16/19 22:45 WBC RBC Hgb Hct MCV MCH MCHC RDW Plt Count MPV Absolute Neuts (auto) Neutrophils % Lymphocytes % Monocytes % Eosinophils % Basophils % Nucleated RBC % PT with INR INR Anticoagulation Therapy No Result Required. Puncture Site No Result Required. ABG pH 7.35 ABG pCO2 at Pt Temp 48.4 H ABG pO2 at Pt Temp 144 H ABG HCO3 26.1 ABG O2 Sat (Measured) 98.8 H ABG O2 Content 17.6 ABG Base Excess 0.5 Raphael Test No Result Required. VBG pH POC VBG pCO2 POC VBG pO2 VBG HCO3 VBG O2 Sat (Madina) VBG Base Excess Carboxyhemoglobin 1.2 Methemoglobin < 1.0 O2 Delivery Device No Result Required. Oxygen Flow Rate No Result Required. Vent Mode No Result Required. Vent Rate No Result Required. Mechanical Rate No Result Required. Pressure Support Vent No Result Required. Sodium Potassium Chloride Carbon Dioxide Anion Gap BUN Creatinine Est GFR (CKD-EPI)AfAm Est GFR (CKD-EPI)NonAf Random Glucose Calcium Total Bilirubin AST ALT Alkaline Phosphatase Ammonia Total Protein Albumin Alcohol, Quantitative Active Medications Generic Name Dose Route Start Last Admin Trade Name Elsy PRN Reason Stop Dose Admin Chlorhexidine Gluconate 1 applic 10/17/19 22:00 Hibiclens For Decolonization - TP HS [facility] Folic Acid 1 mg/ Thiamine HCl 1,000 mls @ 125 mls/hr 10/16/19 18:03 10/16/19 19:10 100 mg/ Multivitamins/Minerals IVPB 10/17/19 02:02 125 mls/hr 10 ml/ Sodium Chloride ONCE ONE Administration Mupirocin 1 applic 10/17/19 10:00 Bactroban Ointment (For Decolonization) - NS 10/22/19 09:59 BID [facility] ASSESSMENT/PLAN: 54 M PMH of alcohol abuse, presents to ED from [facility] after unwitnessed fall and tremors and hallucinations likely secondary to Delirium Tremens. Neuro/Psych -Delirium Tremens -Patient is alert to self only -Patient is agitated and pulling at lines -Head CT negative -Given Valium, Phenobarbital, and ativan in ED -Started on precedex drip and ativan PRN -Banana bag given -Continue monitoring, if unable to maintain airway intubate -Sedation vacation when appropriate -Neurochecks -Head of bed elevated, seizure precautions -Patient was given 80 mg of IV Valium, 12 mg of IV Ativan, and 570 mg of IV phenobarbital in the emergency department -CIWA of 12. Cardiovascular -Patient currently Hemodynamically stable -No issues, continue to monitor Pulmonary -Patient was satting 99% on 1LPM NC -Patient receiving many sedating agents- started on High Flow O2 therapy to continue positive pressure ventilation GI -Patient is NPO -No signs of bleeds, currently stable Renal -No THO -Stable, will continue to monitor ID -Patient does not show symptoms of infection, will continue to monitor -Lactate of 0.8 F: NS @125 ml/hr E: Monitor CMP N: NPO DVT: SCD Lines: Peripheral IVs Dispo: We will continue to follow the patient. Thank you for this consultative opportunity. Visit type - Emergency Visit Emergency Visit: Yes ED Registration Date: 10/16/19 Care time: The patient presented to the Emergency Department on the above date and was hospitalized for further evaluation of their emergent condition. - New Patient This patient is new to me today: Yes Date on this admission: 10/17/19 - Critical Care Critical Care patient: Yes Total Critical Care Time (in minutes): 45 Critical Care Statement: The care of this patient involved high complexity decision making to prevent further life threatening deterioration of the patient 's condition and/or to evaluate & treat vital organ system(s) failure or risk of failure. ATTENDING PHYSICIAN STATEMENT I saw and evaluated the patient. I reviewed the resident's note and discussed the case with the resident. I agree with the resident's findings and plan as documented. SUBJECTIVE: OBJECTIVE: ASSESSMENT AND PLAN:
[2019-10-16] MEDS ORDERED: LORazepam 2 MG/ML SDV VIAL IVPUSH PRN (23:46)
--- NOTE | 2019-10-16 23:58 | HP ---
CHIEF COMPLAINT: Tremors, visual hallucinations PCP: None HISTORY OF PRESENT ILLNESS: 54 y/o male PMH of etoh abuse BIBEMS from [facility] for hallucinations with tremors. Per hand off, pt experienced an unwitnessed fall. Last etoh 14 Oct 2019. In ED pt given soft restraints 2/2 removing med devices. He was administered IV diazepam 80 mg, 520 mg total phenobarbital, 4 mg ativan, and librium. No history could be acquired from patient. Social History: Smoking: Alcohol: yes Drugs: Allergies: No Known Allergies Allergy (Verified 12/11/17 17:06) REVIEW OF SYSTEMS CONSTITUTIONAL: Absent: fever, chills, diaphoresis, generalized weakness, malaise, loss of appetite, weight change HEENT: Absent: rhinorrhea, nasal congestion, throat pain, throat swelling, difficulty swallowing, mouth swelling, ear pain, eye pain, visual changes CARDIOVASCULAR: Absent: chest pain, syncope, palpitations, irregular heart rate, lightheadedness , peripheral edema RESPIRATORY: Absent: cough, shortness of breath, dyspnea with exertion, orthopnea, wheezing, stridor, hemoptysis GASTROINTESTINAL: Absent: abdominal pain, abdominal distension, nausea, vomiting, diarrhea, constipation, melena, hematochezia GENITOURINARY: Absent: dysuria, frequency, urgency, hesitancy, hematuria, flank pain, genital pain MUSCULOSKELETAL: Absent: myalgia, arthralgia, joint swelling, back pain, neck pain SKIN: Absent: rash, itching, pallor HEMATOLOGIC/IMMUNOLOGIC: Absent: easy bleeding, easy bruising, lymphadenopathy, frequent infections ENDOCRINE: Absent: unexplained weight gain, unexplained weight loss, heat intolerance, cold intolerance NEUROLOGIC: Absent: headache, focal weakness or paresthesias, dizziness, unsteady gait, seizure, mental status changes, bladder or bowel incontinence PSYCHIATRIC: Absent: anxiety, depression, suicidal or homicidal ideation, hallucinations. PHYSICAL EXAMINATION Vital Signs - 24 hr 10/16/19 10/16/19 10/16/19 17:12 18:52 20:18 Temperature 97.9 F Pulse Rate 76 Pulse Rate [ 96 H 85 Apical] Respiratory 16 20 18 Rate Blood Pressure 144/94 Blood Pressure 148/106 H 147/100 [Left Arm] O2 Sat by Pulse 99 96 100 Oximetry (%) 10/16/19 10/16/19 21:35 23:13 Temperature Pulse Rate Pulse Rate [ 82 70 Apical] Respiratory 18 18 Rate Blood Pressure Blood Pressure 129/82 142/89 [Left Arm] O2 Sat by Pulse 98 99 Oximetry (%) GENERAL: Sedated and restrained HEAD: NCAT EYES: [place], conjunctiva clear. ENT: Ears normal, nares patent, oropharynx clear without exudates. Moist mucous dry. NECK: No lymphadenopathy or masses. LUNGS: CTAB. No wheezes, and no crackles. No accessory muscle use. HEART: RRR s1 s2 ABDOMEN: Soft, BS present in all 4 quadrants, non-distended, no JVD, MUSCULOSKELETAL: No bony deformities or tenderness. UPPER EXTREMITIES: 2+ pulses, warm, well-perfused. No cyanosis. No clubbing. No peripheral edema. LOWER EXTREMITIES: 2+ pulses, warm, well-perfused. No calf tenderness. No peripheral edema. NEUROLOGICAL: [place]. Brachial and patellar reflexes not elicited SKIN: Warm, dry, normal turgor, no rashes or lesions noted, normal capillary refill. Laboratory Results - last 24 hr 10/16/19 10/16/19 10/16/19 18:18 18:18 18:18 WBC 5.2 RBC 3.95 L Hgb 13.6 Hct 39.4 MCV 99.5 H MCH 34.5 H MCHC 34.6 RDW 14.1 Plt Count 115 L MPV 8.2 Absolute Neuts (auto) 4.2 Neutrophils % 79.8 Lymphocytes % 8.9 Monocytes % 9.8 Eosinophils % 0.9 Basophils % 0.6 Nucleated RBC % 0 PT with INR INR Anticoagulation Therapy Puncture Site ABG pH ABG pCO2 at Pt Temp ABG pO2 at Pt Temp ABG HCO3 ABG O2 Sat (Measured) ABG O2 Content ABG Base Excess Raphael Test VBG pH POC VBG pCO2 POC VBG pO2 VBG HCO3 VBG O2 Sat (Madina) VBG Base Excess Carboxyhemoglobin Methemoglobin O2 Delivery Device Oxygen Flow Rate Vent Mode Vent Rate Mechanical Rate Pressure Support Vent Sodium Potassium Chloride Carbon Dioxide Anion Gap BUN Creatinine Est GFR (CKD-EPI)AfAm Est GFR (CKD-EPI)NonAf Random Glucose Calcium Total Bilirubin AST ALT Alkaline Phosphatase Ammonia 43.30 H Total Protein Albumin Alcohol, Quantitative < 3 10/16/19 10/16/19 10/16/19 18:18 18:18 18:18 WBC RBC Hgb Hct MCV MCH MCHC RDW Plt Count MPV Absolute Neuts (auto) Neutrophils % Lymphocytes % Monocytes % Eosinophils % Basophils % Nucleated RBC % PT with INR 10.80 INR 0.92 Anticoagulation Therapy Puncture Site ABG pH ABG pCO2 at Pt Temp ABG pO2 at Pt Temp ABG HCO3 ABG O2 Sat (Measured) ABG O2 Content ABG Base Excess Raphael Test VBG pH 7.39 POC VBG pCO2 49.1 POC VBG pO2 < 49 H VBG HCO3 29.3 H VBG O2 Sat (Madina) 46.7 L VBG Base Excess 3.9 H Carboxyhemoglobin Methemoglobin O2 Delivery Device Oxygen Flow Rate Vent Mode Vent Rate Mechanical Rate Pressure Support Vent Sodium 141 Potassium 3.7 Chloride 106 Carbon Dioxide 29 Anion Gap 6 L BUN 9.3 Creatinine 0.7 Est GFR (CKD-EPI)AfAm 122.27 Est GFR (CKD-EPI)NonAf 105.50 Random Glucose 109 H Calcium 10.5 H Total Bilirubin 0.9 AST 72 H ALT 61 Alkaline Phosphatase 56 Ammonia Total Protein 7.8 Albumin 4.8 Alcohol, Quantitative 10/16/19 22:45 WBC RBC Hgb Hct MCV MCH MCHC RDW Plt Count MPV Absolute Neuts (auto) Neutrophils % Lymphocytes % Monocytes % Eosinophils % Basophils % Nucleated RBC % PT with INR INR Anticoagulation Therapy No Result Required. Puncture Site No Result Required. ABG pH 7.35 ABG pCO2 at Pt Temp 48.4 H ABG pO2 at Pt Temp 144 H ABG HCO3 26.1 ABG O2 Sat (Measured) 98.8 H ABG O2 Content 17.6 ABG Base Excess 0.5 Raphael Test No Result Required. VBG pH POC VBG pCO2 POC VBG pO2 VBG HCO3 VBG O2 Sat (Madina) VBG Base Excess Carboxyhemoglobin 1.2 Methemoglobin < 1.0 O2 Delivery Device No Result Required. Oxygen Flow Rate No Result Required. Vent Mode No Result Required. Vent Rate No Result Required. Mechanical Rate No Result Required. Pressure Support Vent No Result Required. Sodium Potassium Chloride Carbon Dioxide Anion Gap BUN Creatinine Est GFR (CKD-EPI)AfAm Est GFR (CKD-EPI)NonAf Random Glucose Calcium Total Bilirubin AST ALT Alkaline Phosphatase Ammonia Total Protein Albumin Alcohol, Quantitative ASSESSMENT/PLAN: 54 y/o male PMH of etoh abuse BIBEMS from [facility] for hallucinations with tremors. ICU consulted to assess pt's ability to maintain airway and provide appropriate etoh withdrawal care. Pt taken to ICU. # Etoh withdrawal - Delerium tremens - ICU care to start dexmedetomidine drip - CIWA ativan alcohol withdrawal protocol - Neuro checks q2h - Imaging NEGATIVE for fracture or other acute processes - When tolerable- rifaximin and lactulose - Banana bag, folate, b12, multivitamin - HbA1c - TSH # Hypercalcemia - IVF - F/u Mg, phos, PTH # Transaminitis - RUQ US # F/E/N - NS - Cont. to monitor - NPO # DVT prophylaxis - Heparin SQ # Disposition - Admit to ICU Lee Romero MD Visit type - Emergency Visit Emergency Visit: Yes ED Registration Date: 10/16/19 Care time: The patient presented to the Emergency Department on the above date and was hospitalized for further evaluation of their emergent condition. - New Patient This patient is new to me today: Yes Date on this admission: 10/17/19 - Critical Care Critical Care patient: Yes Total Critical Care Time (in minutes): 40 Critical Care Statement: The care of this patient involved high complexity decision making to prevent further life threatening deterioration of the patient 's condition and/or to evaluate & treat vital organ system(s) failure or risk of failure. ATTENDING PHYSICIAN STATEMENT I saw and evaluated the patient. I reviewed the resident's note and discussed the case with the resident. I agree with the resident's findings and plan as documented. SUBJECTIVE: OBJECTIVE: ASSESSMENT AND PLAN:
[2019-10-17] MEDS ORDERED: DEXMEDETOMIDINE HCL 200 MCG in SODIUM CHLORIDE 48 ML IVPB SCH
[2019-10-17] MEDS ORDERED: LORazepam 2 MG/ML SDV VIAL IVPUSH PRN (00:23)
[2019-10-17] MEDS ORDERED: FOLIC ACID INJECTION - 1 MG, THIAMINE HCL 100 MG, MULTIVIT INJECTION ADULT 10 ML in SOD... IVPB ONE (00:30)
[2019-10-17] MEDS ORDERED: SODIUM CHLORIDE 1,000 ML IV SCH (01:15)
[2019-10-17] MEDS ORDERED: LORazepam 2 MG/ML SDV VIAL IVPUSH ONE (01:40)
[2019-10-17] MEDS ORDERED: LORazepam 2 MG/ML SDV VIAL ONE (01:41)
[2019-10-17 07:18] LABS: HEMOGLOBIN 12.6 GM/dL (11.7-16.9); MCH 34.8 pg (25.7-33.7); MCHC 35.1 g/dl (32.0-35.9); MEAN CELL VOLUME 99.1 fl (80-96); MEAN PLT VOLUME 7.5 fl (7.5-11.1); PLATELET COUNT 101 K/MM3 (134-434); RBC 3.63 M/mm3 (4.00-5.60); RDW 13.9 % (11.9-15.9); WHITE BLOOD COUNT 4.6 K/mm3 (4.0-10.0)
[2019-10-17 07:32] LABS: ARTERIAL BLOOD GAS pH 7.38 (7.35-7.45)
[2019-10-17 07:33] LABS: ALLENS TEST POSITIVE; ARTERIAL BLD GAS O2 SATURATION 96.8 % (95-98); ARTERIAL BLOOD GAS BASE EXCESS 0.2 meq/l (-2-2); ARTERIAL BLOOD GAS PO2 90.7 mmHg (80-100)
[2019-10-17 08:07] LABS: ALBUMIN 3.8 g/dl (3.4-5.0); BILIRUBIN,TOTAL 0.8 mg/dL (0.2-1); BLOOD UREA NITROGEN 7.4 mg/dL (7-18); CREATININE 0.5 mg/dL (0.55-1.3); MAGNESIUM 1.8 mg/dL (1.8-2.4); PHOSPHOROUS 3.7 mg/dL (2.5-4.9); POTASSIUM 3.6 mmol/L (3.5-5.1); TOT PROT 6.7 g/dl (6.4-8.2)
[2019-10-17] MEDS ORDERED: PT OWN MED DRAWER 7, Y5N ONE (08:15)
[2019-10-17] MEDS ORDERED: PHENobarbital SODIUM 65 MG/1 ML VIAL IVPUSH ONE (08:33)
--- NOTE | 2019-10-17 11:08 | PN ---
Teaching Attending Note Name of Resident: Kerry Thao ATTENDING PHYSICIAN STATEMENT I saw and evaluated the patient. I reviewed the resident's note and discussed the case with the resident. I agree with the resident's findings and plan as documented. SUBJECTIVE: Pt seen and examined in the ICU. Lethargic but arousable. On HFOT. OBJECTIVE: Vital Signs Period Temp Pulse Resp BP Sys/Fraga Pulse Ox Last 24 Hr 97.4 F-97.9 F 60-96 15-24 113-162/79-106 96-100 Intake & Output 10/14/19 10/15/19 10/16/19 10/17/19 23:59 23:59 23:59 23:59 Intake Total 461 Balance 461 Weight 79.379 kg 79.3 kg Gen: lethargic but arousable Heart: RRR Lung:decreased breath sounds at the bases Abd: soft, nontender Ext: no edema CBC, BMP 10/17/19 06:40 10/17/19 06:40 Active Medications Chlorhexidine Gluconate (Hibiclens For Decolonization -) 1 applic TP HS RANCHO Sodium Chloride (Normal Saline -) 1,000 mls @ 125 mls/hr IV ASDIR RANCHO Last Admin: 10/17/19 03:11 Dose: 125 mls/hr Lorazepam (Ativan Injection -) 4 mg IVPUSH Q1H PRN PRN Reason: AGITATION Mupirocin (Bactroban Ointment (For Decolonization) -) 1 applic NS BID RANCHO Stop: 10/22/19 09:59 ASSESSMENT AND PLAN: Acute Alcohol Withdrawal with Delirium r/o Delerium Tremens Alcohol Abuse Thrombocytopenia - ativan - O2 to keep Spo2 >90% - aspiration precautions - IVF - NPO - DVT prophylaxis - continue ICU monitoring
[2019-10-17] MEDS: DEXTROSE 5%-NORMAL SALINE 1,000 ML IV SCH ×2 (11:18→11:30)
[2019-10-17] MEDS: MUPIROCIN 2% TOPICAL OINTMENT FOR DECOLONIZATION NS SCH ×2 (11:19→21:10)
--- NOTE | 2019-10-17 11:45 | PN ---
Physical Exam: SUBJECTIVE: Patient seen and examined. Awake but unable to assess mental status. Patient remains tremulous. OBJECTIVE: Vital Signs Period Temp Pulse Resp BP Sys/Fraga Pulse Ox Last 24 Hr 97.4 F-97.9 F 60-96 15-24 113-162/79-106 96-100 GENERAL: Awake but confused. Tremulous. HEENT: On high flow O2. LUNGS: CTABL HEART: Regular rate and rhythm, S1, S2 without murmur, rub or gallop. ABDOMEN: Soft, nontender, nondistended, normoactive bowel sounds EXTREMITIES: 2+ pulses, warm, well-perfused, no edema. NEUROLOGICAL: unable to assess. SKIN: Warm, dry, normal turgor, no rashes or lesions noted Laboratory Results - last 24 hr 10/16/19 10/16/19 10/16/19 18:18 18:18 18:18 WBC 5.2 RBC 3.95 L Hgb 13.6 Hct 39.4 MCV 99.5 H MCH 34.5 H MCHC 34.6 RDW 14.1 Plt Count 115 L MPV 8.2 Absolute Neuts (auto) 4.2 Neutrophils % 79.8 Lymphocytes % 8.9 Monocytes % 9.8 Eosinophils % 0.9 Basophils % 0.6 Nucleated RBC % 0 PT with INR INR Anticoagulation Therapy Puncture Site ABG pH ABG pCO2 at Pt Temp ABG pO2 at Pt Temp ABG HCO3 ABG O2 Sat (Measured) ABG O2 Content ABG Base Excess Raphael Test VBG pH POC VBG pCO2 POC VBG pO2 VBG HCO3 VBG O2 Sat (Madina) VBG Base Excess Carboxyhemoglobin Methemoglobin O2 Delivery Device Oxygen Flow Rate Vent Mode Vent Rate Mechanical Rate Pressure Support Vent Sodium Potassium Chloride Carbon Dioxide Anion Gap BUN Creatinine Est GFR (CKD-EPI)AfAm Est GFR (CKD-EPI)NonAf Random Glucose Hemoglobin A1c % Lactic Acid Calcium Phosphorus Magnesium Total Bilirubin AST ALT Alkaline Phosphatase Ammonia 43.30 H Total Protein Albumin TSH Alcohol, Quantitative < 3 10/16/19 10/16/19 10/16/19 18:18 18:18 18:18 WBC RBC Hgb Hct MCV MCH MCHC RDW Plt Count MPV Absolute Neuts (auto) Neutrophils % Lymphocytes % Monocytes % Eosinophils % Basophils % Nucleated RBC % PT with INR 10.80 INR 0.92 Anticoagulation Therapy Puncture Site ABG pH ABG pCO2 at Pt Temp ABG pO2 at Pt Temp ABG HCO3 ABG O2 Sat (Measured) ABG O2 Content ABG Base Excess Raphael Test VBG pH 7.39 POC VBG pCO2 49.1 POC VBG pO2 < 49 H VBG HCO3 29.3 H VBG O2 Sat (Madina) 46.7 L VBG Base Excess 3.9 H Carboxyhemoglobin Methemoglobin O2 Delivery Device Oxygen Flow Rate Vent Mode Vent Rate Mechanical Rate Pressure Support Vent Sodium 141 Potassium 3.7 Chloride 106 Carbon Dioxide 29 Anion Gap 6 L BUN 9.3 Creatinine 0.7 Est GFR (CKD-EPI)AfAm 122.27 Est GFR (CKD-EPI)NonAf 105.50 Random Glucose 109 H Hemoglobin A1c % Lactic Acid Calcium 10.5 H Phosphorus Magnesium Total Bilirubin 0.9 AST 72 H ALT 61 Alkaline Phosphatase 56 Ammonia Total Protein 7.8 Albumin 4.8 TSH Alcohol, Quantitative 10/16/19 10/17/19 10/17/19 22:45 03:36 06:00 WBC RBC Hgb Hct MCV MCH MCHC RDW Plt Count MPV Absolute Neuts (auto) Neutrophils % Lymphocytes % Monocytes % Eosinophils % Basophils % Nucleated RBC % PT with INR INR Anticoagulation Therapy No Result Required. No Result Required. Puncture Site No Result Required. Right radial ABG pH 7.35 7.38 ABG pCO2 at Pt Temp 48.4 H 43.0 ABG pO2 at Pt Temp 144 H 90.7 ABG HCO3 26.1 24.9 ABG O2 Sat (Measured) 98.8 H 96.8 ABG O2 Content 17.6 16.4 ABG Base Excess 0.5 0.2 Rapheal Test No Result Required. Positive VBG pH POC VBG pCO2 POC VBG pO2 VBG HCO3 VBG O2 Sat (Madina) VBG Base Excess Carboxyhemoglobin 1.2 Methemoglobin < 1.0 O2 Delivery Device No Result Required. Hi shanna Oxygen Flow Rate No Result Required. 30% Vent Mode No Result Required. No Result Required. Vent Rate No Result Required. No Result Required. Mechanical Rate No Result Required. No Result Required. Pressure Support Vent No Result Required. No Result Required. Sodium Potassium Chloride Carbon Dioxide Anion Gap BUN Creatinine Est GFR (CKD-EPI)AfAm Est GFR (CKD-EPI)NonAf Random Glucose Hemoglobin A1c % Lactic Acid 0.8 Calcium Phosphorus Magnesium Total Bilirubin AST ALT Alkaline Phosphatase Ammonia Total Protein Albumin TSH Alcohol, Quantitative 10/17/19 10/17/19 10/17/19 06:40 06:40 06:40 WBC 4.6 RBC 3.63 L Hgb 12.6 Hct 36.0 MCV 99.1 H MCH 34.8 H MCHC 35.1 RDW 13.9 Plt Count 101 L MPV 7.5 Absolute Neuts (auto) Neutrophils % Lymphocytes % Monocytes % Eosinophils % Basophils % Nucleated RBC % PT with INR INR Anticoagulation Therapy Puncture Site ABG pH ABG pCO2 at Pt Temp ABG pO2 at Pt Temp ABG HCO3 ABG O2 Sat (Measured) ABG O2 Content ABG Base Excess Raphael Test VBG pH POC VBG pCO2 POC VBG pO2 VBG HCO3 VBG O2 Sat (Madina) VBG Base Excess Carboxyhemoglobin Methemoglobin O2 Delivery Device Oxygen Flow Rate Vent Mode Vent Rate Mechanical Rate Pressure Support Vent Sodium 144 Potassium 3.6 Chloride 111 H Carbon Dioxide 27 Anion Gap 6 L BUN 7.4 Creatinine 0.5 L Est GFR (CKD-EPI)AfAm 140.40 Est GFR (CKD-EPI)NonAf 121.14 Random Glucose 103 Hemoglobin A1c % 4.8 Lactic Acid Calcium 9.0 Phosphorus 3.7 Magnesium 1.8 Total Bilirubin 0.8 AST 58 H ALT 50 Alkaline Phosphatase 50 Ammonia Total Protein 6.7 Albumin 3.8 TSH 0.67 Alcohol, Quantitative Active Medications Generic Name Dose Route Start Last Admin Trade Name Freq PRN Reason Stop Dose Admin Chlorhexidine Gluconate 1 applic 10/17/19 22:00 Hibiclens For Decolonization - TP HS RANCHO Sodium Chloride 1,000 mls @ 125 mls/hr 10/17/19 01:15 10/17/19 03:11 Normal Saline - IV 125 mls/hr ASDIR RANCHO Administration Dextrose/Sodium Chloride 1,000 mls @ 75 mls/hr 10/17/19 11:15 D5-Ns - IV ASDIR RANCHO Lorazepam 4 mg 10/17/19 03:20 Ativan Injection - IVPUSH Q1H PRN AGITATION Mupirocin 1 applic 10/17/19 10:00 10/17/19 11:19 Bactroban Ointment (For Decolonization) - NS 10/22/19 09:59 1 applic BID RANCHO Administration ASSESSMENT/PLAN: 54 y.o. M PMH EtOH abuse, pancreatitis, OA b/l hips, anxiety, insomnia presenting from 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 -As per [facility] records last drink 10/14/2019 -S/p 80mg IV valium, 650mg IV phenobarbitol, 6mg IV ativan, 50mg PO librium -Precedex sedation overnight, d/c'd this AM -Continue Ativan 4mg IV q1h PRN -Continue thiamine, folic acid, multivitamin #Cardiovascular -no acute issues -vital signs stable #Pulm -Acute hypoxic hypercapnic resp failure -Initial ABG: pH 7.35, pCO2 48.34, pO2 144, HCO3 26.1-- repeat abg this AM shows resolution of hypoxia & hypercapnia -On high flow o2 30% -Patient tachypnic, continue to monitor vitals #Heme/onc -macrocytic anemia mcv 99.1-- likely 2/2 chronic etoh abuse -thrombocytopenia, chronic -monitor cbc -s/p banana bag in ED #ID -remains afebrile -no abx at this time #FENLTD -D5NS @75mL/hr -repleting lytes prn -NPO -peripheral IVs x2 (LUE & RUE) -no tubes/ drains #PPX -SCDs Visit type - Emergency Visit Emergency Visit: Yes ED Registration Date: 10/16/19 Care time: The patient presented to the Emergency Department on the above date and was hospitalized for further evaluation of their emergent condition. - New Patient This patient is new to me today: Yes Date on this admission: 10/17/19 - Critical Care Critical Care patient: Yes Total Critical Care Time (in minutes): 45 Critical Care Statement: The care of this patient involved high complexity decision making to prevent further life threatening deterioration of the patient 's condition and/or to evaluate & treat vital organ system(s) failure or risk of failure. ATTENDING PHYSICIAN STATEMENT I saw and evaluated the patient. I reviewed the resident's note and discussed the case with the resident. I agree with the resident's findings and plan as documented. SUBJECTIVE: OBJECTIVE: ASSESSMENT AND PLAN:
--- NOTE | 2019-10-17 13:16 | EKG ---
Test Reason : Blood Pressure : / mmHG Vent. Rate : 073 BPM Atrial Rate : 073 BPM P-R Int : 174 ms QRS Dur : 092 ms QT Int : 410 ms P-R-T Axes : 071 061 043 degrees QTc Int : 451 ms NORMAL SINUS RHYTHM NORMAL ECG WHEN COMPARED WITH ECG OF 11-DEC-2017 18:05, NO SIGNIFICANT CHANGE WAS FOUND Confirmed by LEIDA WHITMAN MD ([id number]) on 10/17/2019 1:15:53 PM Referred By: Confirmed By:LEIDA WHITMAN MD
[2019-10-17] MEDS: LORazepam 2 MG/ML SDV VIAL IVPUSH PRN ×5 (16:24→20:33)
--- NOTE | 2019-10-17 16:28 | PN ---
Progress Note, Physician History of Present Illness: patient seen and examined at bedside in ICU. He denies any symptoms. Got phenobarbital this AM. Still tremulous. adequate ROS could not be done due to clinical condition as he is in active alcohol withdrawals. - Current Medication List Current Medications: Active Medications Chlorhexidine Gluconate (Hibiclens For Decolonization -) 1 applic TP HS RANCHO Folic Acid (Folic Acid -) 1 mg PO DAILY RANCHO Dextrose/Sodium Chloride (D5-Ns -) 1,000 mls @ 75 mls/hr IV ASDIR RANCHO Last Admin: 10/17/19 11:30 Dose: 75 mls/hr Lorazepam (Ativan Injection -) 4 mg IVPUSH Q1H PRN PRN Reason: AGITATION Multivitamins/Minerals/Vitamin C (Tab-A-Vit -) 1 tab PO DAILY [facility] Mupirocin (Bactroban Ointment (For Decolonization) -) 1 applic NS BID RANCHO Stop: 10/22/19 09:59 Last Admin: 10/17/19 11:19 Dose: 1 applic Thiamine HCl (Vitamin B1 -) 100 mg PO DAILY [facility] - Objective Vital Signs: Vital Signs Temperature 98.5 F 10/17/19 14:00 Pulse Rate 87 10/17/19 14:00 Respiratory Rate 24 H 10/17/19 14:00 Blood Pressure 140/89 10/17/19 14:00 O2 Sat by Pulse Oximetry (%) 99 10/17/19 11:00 Constitutional: Yes: Other (tired appearing but easily aroused) Cardiovascular: Yes: Regular Rate and Rhythm Respiratory: Yes: Rales (faint crackles at bases bilaterally) Gastrointestinal: Yes: WNL, Normal Bowel Sounds, Soft. No: Distention Edema: No Neurological: Yes: Oriented (oriented to self and place. knows his name and knows he is at [facility]. Thought it was the year 2020), Confusion Psychiatric: Yes: Oriented (oriented to self and place. knows his name and knows he is at [facility]. Thought it was the year 2020) Labs: CBC, BMP 10/17/19 06:40 10/17/19 06:40 INR, PTT INR 0.92 (0.83-1.09) 10/16/19 18:18 - ....Imaging Chest X-ray: Report Reviewed (no acute pathology) Impression/Plan Impression/Plan: 54M with history of alcohol abuse and dependency and pancreatitis presents to the hospital with acute alcohol withdrawals. Acute Alcohol Withdrawal with Delirium alcohol abuse and dependency possible/impending Delerium Tremens Thrombocytopenia history of pancreatitis hypercalcemia transaminitis continue ativan PRN continue high flow nasal O2 and wean as tolerated keep HOB elevated for aspiration precautions IVF with D5NS NPO for now DVT ppx with SCDs-avoid heparin products due to thrombocytopenia trend CBC thiamine folate and multivitamins Hypercalcemia resolved with IVf-f/u PTH (pending) AST trending down ICU care Visit type - Emergency Visit Emergency Visit: Yes ED Registration Date: 10/16/19 Care time: The patient presented to the Emergency Department on the above date and was hospitalized for further evaluation of their emergent condition. - New Patient This patient is new to me today: Yes Date on this admission: 10/17/19 - Critical Care Critical Care patient: Yes Total Critical Care Time (in minutes): 35 Critical Care Statement: The care of this patient involved high complexity decision making to prevent further life threatening deterioration of the patient 's condition and/or to evaluate & treat vital organ system(s) failure or risk of failure.
[2019-10-17] MEDS: CHLORHEXIDINE GLUCONATE 4% CLEANSER FOR DECOLONIZATION TP SCH (21:10)
[2019-10-18] MEDS: LORazepam 2 MG/ML SDV VIAL IVPUSH PRN ×12 (00:09→23:19)
[2019-10-18 07:39] LABS: BASO % 0.4 % (0-2.0); EOS % 1.5 % (0-4.5); HEMATOCRIT 36.3 % (35.4-49); HEMOGLOBIN 12.6 GM/dL (11.7-16.9); LYMPH % 10.1 % (8-40); MCH 34.5 pg (25.7-33.7); MCHC 34.8 g/dl (32.0-35.9); MEAN CELL VOLUME 99.2 fl (80-96); MONO % 11.7 % (3.8-10.2); NEUT % 76.3 % (42.8-82.8); PLATELET COUNT 118 K/MM3 (134-434); RBC 3.66 M/mm3 (4.00-5.60); RDW 13.9 % (11.9-15.9); WHITE BLOOD COUNT 6.3 K/mm3 (4.0-10.0)
--- NOTE | 2019-10-18 07:54 | PN ---
Physical Exam: SUBJECTIVE: Patient seen and examined Patient drowsy but arousable to voice, oriented, denies any pain and states that he feels like his normal self. Continues to be grossly tremulous. OBJECTIVE: Vital Signs Period Temp Pulse Resp BP Sys/Fraga Pulse Ox Last 24 Hr 97.8 F-98.8 F 76-104 15-24 99-162/74-127 98-100 GENERAL: The patient is drowsy but arousable to verbal stimuli, oriented to person, place, date, and situation. HEAD: Normal with no signs of trauma. EYES: PERRL, extraocular movements intact, sclera anicteric, conjunctiva clear. No ptosis. ENT: Ears normal, nares patent, oropharynx clear without exudates, moist mucous membranes. NECK: Trachea midline, full range of motion, supple. LUNGS: Breath sounds equal, clear to auscultation bilaterally, no wheezes, no crackles, no accessory muscle use. HEART: Regular rate and rhythm, S1, S2 without murmur, rub or gallop. ABDOMEN: Soft, nontender, nondistended, normoactive bowel sounds, no guarding, no rebound. EXTREMITIES: 2+ pulses, warm, well-perfused, no edema. NEUROLOGICAL: Cranial nerves II through XII grossly intact, grossly tremulous throughout body SKIN: Warm, dry, normal turgor, no rashes or lesions noted Laboratory Results - last 24 hr 10/17/19 10/17/19 10/18/19 06:40 06:40 05:50 WBC 6.3 RBC 3.66 L Hgb 12.6 Hct 36.3 MCV 99.2 H MCH 34.5 H MCHC 34.8 RDW 13.9 Plt Count 118 L MPV 8.0 Absolute Neuts (auto) 4.8 Neutrophils % 76.3 Lymphocytes % 10.1 Monocytes % 11.7 H Eosinophils % 1.5 Basophils % 0.4 Nucleated RBC % 0 Sodium 144 Potassium 3.6 Chloride 111 H Carbon Dioxide 27 Anion Gap 6 L BUN 7.4 Creatinine 0.5 L Est GFR (CKD-EPI)AfAm 140.40 Est GFR (CKD-EPI)NonAf 121.14 Random Glucose 103 Hemoglobin A1c % 4.8 Calcium 9.0 Phosphorus 3.7 Magnesium 1.8 Total Bilirubin 0.8 AST 58 H ALT 50 Alkaline Phosphatase 50 Total Protein 6.7 Albumin 3.8 TSH 0.67 Active Medications Generic Name Dose Route Start Last Admin Trade Name Freq PRN Reason Stop Dose Admin Chlorhexidine Gluconate 1 applic 10/17/19 22:00 10/17/19 21:10 Hibiclens For Decolonization - TP 1 applic HS [facility] Administration Folic Acid 1 mg 10/18/19 10:00 Folic Acid - PO DAILY [facility] Dextrose/Sodium Chloride 1,000 mls @ 75 mls/hr 10/17/19 11:15 10/17/19 11:30 D5-Ns - IV 75 mls/hr ASDIR R[facility] Administration Lorazepam 4 mg 10/17/19 03:20 10/18/19 07:01 Ativan Injection - IVPUSH 4 mg Q1H PRN Administration AGITATION Multivitamins/Minerals/Vitamin C 1 tab 10/18/19 10:00 Tab-A-Vit - PO DAILY [facility] Mupirocin 1 applic 10/17/19 10:00 10/17/19 21:10 Bactroban Ointment (For Decolonization) - NS 10/22/19 09:59 1 applic BID [facility] Administration Thiamine HCl 100 mg 10/18/19 10:00 Vitamin B1 - PO DAILY [facility] ASSESSMENT/PLAN: 54 y.o. M PMH EtOH abuse, pancreatitis, OA b/l hips, anxiety, insomnia, presenting from [facility] for alcohol withdrawal, acute hypoxic hypercapnic respiratory failure, concern for potential DTs. Neuro: -Lethargic but arousable, oriented X4 this morning -continues to be grossly tremulous -As per [facility] records, last drink 10/14/2019 -s/p 80mg IV valium, 650mg IV phenobarbitol, 6mg IV ativan, 50mg PO librium in the ED -Continue Ativan 4mg IV q1h PRN -Continue thiamine, folic acid, multivitamin CV: -no acute issues -hypertensive to 170s sytolic this AM -vital signs stable Respiratory: -Acute hypoxic hypercapnic respiratory failure in the ED -initial ABG: pH 7.35, pCO2 48.34, pO2 144, HCO3 26.1 - repeat abg yesterday AM showed resolution of hypoxia & hypercapnia -On high flow O2 30% -continue to monitor vitals Renal: -potassium noted to be 3.0 this AM, chloride elevated, phos low -repleting with 2 bags potassium IV -switching to D5LR with 20mEQ potassium at 100 cc/hr -giving 30mmol of potassium phosphate -Cr 0.6 -ctm Heme/Onc: -macrocytic anemia with MCV of 99.1, likely 2/2 chronic EtOH abuse -chronic thrombocytopenia -s/p banana bag in ED -monitor cbc ID: -remains afebrile -no abx at this time FENLTD: -was on D5NS @75mL/hr, but chloride high and potassium low -switched to D5LR @ 100cc/hr with 20mEQ potassium -giving 30 mmol potassium phosphate -replete lytes prn -NPO -peripheral IVs x2 (LUE & RUE) -no tubes/drains PPX: -SCDs Dispo: -continue Ativan 4mg Q1hr PRN -ctm Visit type - Emergency Visit Emergency Visit: Yes ED Registration Date: 10/16/19 Care time: The patient presented to the Emergency Department on the above date and was hospitalized for further evaluation of their emergent condition. - New Patient This patient is new to me today: Yes Date on this admission: 10/18/19 - Critical Care Critical Care patient: Yes Total Critical Care Time (in minutes): 45 Critical Care Statement: The care of this patient involved high complexity decision making to prevent further life threatening deterioration of the patient 's condition and/or to evaluate & treat vital organ system(s) failure or risk of failure. ATTENDING PHYSICIAN STATEMENT I saw and evaluated the patient. I reviewed the resident's note and discussed the case with the resident. I agree with the resident's findings and plan as documented. SUBJECTIVE: OBJECTIVE: ASSESSMENT AND PLAN:
[2019-10-18 08:05] LABS: BILIRUBIN,TOTAL 0.9 mg/dL (0.2-1); BLOOD UREA NITROGEN 6.3 mg/dL (7-18); CREATININE 0.6 mg/dL (0.55-1.3); MAGNESIUM 1.8 mg/dL (1.8-2.4); PHOSPHOROUS 2.4 mg/dL (2.5-4.9); TOT PROT 6.9 g/dl (6.4-8.2)
[2019-10-18] MEDS ORDERED: POTASSIUM CHLORIDE 20 MEQ PREMIX IVPB 100 ML IVPB ONE (09:00)
[2019-10-18] MEDS ORDERED: POTASSIUM CHLORIDE TABS 20 MEQ TABLET.ER (FP) PO ONE ×2 (09:00→10:30)
[2019-10-18] MEDS ORDERED: chlordiazePOXIDE HCL 25 MG CAPSULE PO PRN (10:00)
[2019-10-18] MEDS: D5-LR+20 MEQ KCL - 20 MEQ/1,000 ML INFUS.BAG IV SCH ×2 (10:02→21:15)
[2019-10-18] MEDS ORDERED: POTASSIUM PHOSPHATE 30 MM in DEXTROSE 5%-WATER - 250 ML IVPB ONE (10:30)
--- NOTE | 2019-10-18 11:26 | PN ---
Teaching Attending Note Name of Resident: Tay Butterfield ATTENDING PHYSICIAN STATEMENT I saw and evaluated the patient. I reviewed the resident's note and discussed the case with the resident. I agree with the resident's findings and plan as documented. SUBJECTIVE: Pt seen and examined in the ICU. More awake but still confused, agitated. On HFOT. OBJECTIVE: Vital Signs Period Temp Pulse Resp BP Sys/Fraga Pulse Ox Last 24 Hr 97.9 F-99.4 F 76-104 15-24 99-171/74-127 98-99 Intake & Output 10/15/19 10/16/19 10/17/19 10/18/19 23:59 23:59 23:59 23:59 Intake Total 986 703 Balance 986 703 Weight 79.379 kg 79.3 kg 78.1 kg Gen: confused, somnolent Heart: RRR Lung: decreased breath sounds at the bases Abd: soft, nontender Ext: no edema CBC, BMP 10/18/19 05:50 10/18/19 05:50 Active Medications Chlordiazepoxide HCl (Librium -) 25 mg PO Q6H PRN PRN Reason: WITHDRAWAL(CONT SUBST) Chlorhexidine Gluconate (Hibiclens For Decolonization -) 1 applic TP HS [facility] Last Admin: 10/17/19 21:10 Dose: 1 applic Enoxaparin Sodium (Lovenox -) 40 mg SQ ONCE ONE Stop: 10/18/19 11:01 Folic Acid (Folic Acid -) 1 mg PO DAILY [facility] Dextrose/Lactated Ringer's (D5-Lr+20 Meq Kcl -) 20 meq in 1,000 mls @ 100 mls/ hr IV ASDIR [facility] Last Admin: 10/18/19 10:02 Dose: 100 mls/hr Potassium Phosphate 30 mm/ (Dextrose) 260 mls @ 43.333 mls/hr IVPB ONCE ONE Stop: 10/18/19 16:29 Lorazepam (Ativan Injection -) 4 mg IVPUSH Q1H PRN PRN Reason: AGITATION Last Admin: 10/18/19 11:13 Dose: 4 mg Multivitamins/Minerals/Vitamin C (Tab-A-Vit -) 1 tab PO DAILY [facility] Mupirocin (Bactroban Ointment (For Decolonization) -) 1 applic NS BID [facility] Stop: 10/22/19 09:59 Last Admin: 10/17/19 21:10 Dose: 1 applic Ofloxacin (Ocuflox 0.3% Eye Drops -) 1 drop OU Q4HWA [facility] Thiamine HCl (Vitamin B1 -) 100 mg PO DAILY [facility] ASSESSMENT AND PLAN: Acute Alcohol Withdrawal with Delirium r/o Delerium Tremens Alcohol Abuse Thrombocytopenia - ativan - librium - O2 to keep Spo2 >90% - aspiration precautions - IVF - replete lytes - DVT prophylaxis - continue ICU monitoring
[2019-10-18] MEDS: MUPIROCIN 2% TOPICAL OINTMENT FOR DECOLONIZATION NS SCH ×2 (11:43→21:31)
[2019-10-18] MEDS: THIAMINE HCL 100 MG TABLET (FP) PO SCH (11:43)
[2019-10-18] MEDS: FOLIC ACID 1 MG TABLET (FP) PO SCH (11:43)
[2019-10-18] MEDS: MULTIVITAMINS (DAILY MVI) TABLET (FP) PO SCH (11:43)
[2019-10-18] MEDS ORDERED: ENOXAPARIN NA (PORCINE) 40 MG/0.4 ML DISP.SYRIN SQ ONE (12:00)
[2019-10-18] MEDS: OFLOXACIN 0.3% OPHTHALMIC SOLUTION 5 ML BOTTLE OU SCH ×3 (14:20→21:31)
[2019-10-18] MEDS ORDERED: ENOXAPARIN NA (PORCINE) 40 MG/0.4 ML DISP.SYRIN SQ SCH (15:30)
--- NOTE | 2019-10-18 16:11 | PN ---
Progress Note, Physician History of Present Illness: patient seen and examined at bedside in ICU. lethargic but occasionally wakes up. still has tremors. adequate ROS could not be done due to clinical condition as he is in active alcohol withdrawals and lethargic from a combination of not sleeping and getting benzos. - Current Medication List Current Medications: Active Medications Chlordiazepoxide HCl (Librium -) 25 mg PO Q6H PRN PRN Reason: WITHDRAWAL(CONT SUBST) Chlorhexidine Gluconate (Hibiclens For Decolonization -) 1 applic TP HS [facility] Last Admin: 10/17/19 21:10 Dose: 1 applic Enoxaparin Sodium (Lovenox -) 40 mg SQ DAILY [facility] Folic Acid (Folic Acid -) 1 mg PO DAILY [facility] Last Admin: 10/18/19 11:43 Dose: Not Given Dextrose/Lactated Ringer's (D5-Lr+20 Meq Kcl -) 20 meq in 1,000 mls @ 100 mls/ hr IV ASDIR [facility] Last Admin: 10/18/19 10:02 Dose: 100 mls/hr Potassium Phosphate 30 mm/ (Dextrose) 260 mls @ 43.333 mls/hr IVPB ONCE ONE Stop: 10/18/19 16:29 Last Admin: 10/18/19 13:09 Dose: 43.333 mls/hr Lorazepam (Ativan Injection -) 4 mg IVPUSH Q1H PRN PRN Reason: AGITATION Last Admin: 10/18/19 14:42 Dose: 4 mg Multivitamins/Minerals/Vitamin C (Tab-A-Vit -) 1 tab PO DAILY [facility] Last Admin: 10/18/19 11:43 Dose: Not Given Mupirocin (Bactroban Ointment (For Decolonization) -) 1 applic NS BID [facility] Stop: 10/22/19 09:59 Last Admin: 10/18/19 11:43 Dose: 1 applic Ofloxacin (Ocuflox 0.3% Eye Drops -) 1 drop OU Q4HWA [facility] Last Admin: 10/18/19 14:20 Dose: 1 drop Thiamine HCl (Vitamin B1 -) 100 mg PO DAILY [facility] Last Admin: 10/18/19 11:43 Dose: Not Given - Objective Vital Signs: Vital Signs Temperature 99.4 F 10/18/19 09:17 Pulse Rate 86 10/18/19 08:00 Respiratory Rate 15 10/18/19 08:00 Blood Pressure 171/88 H 10/18/19 08:00 O2 Sat by Pulse Oximetry (%) 99 10/18/19 09:00 Constitutional: Yes: Other (lethargic) Cardiovascular: Yes: Regular Rate and Rhythm Respiratory: Yes: Rales (faint crackles at bases bilaterally. poor respiratory effort. not following commands to take deep breaths) Gastrointestinal: Yes: WNL, Normal Bowel Sounds, Soft. No: Distention Edema: No Neurological: Yes: lethargic Psychiatric: Yes: lethargic. tremulous Labs: CBC, BMP 10/18/19 05:50 10/18/19 05:50 INR, PTT INR 0.92 (0.83-1.09) 10/16/19 18:18 Impression/Plan Impression/Plan: 54M with history of alcohol abuse and dependency and pancreatitis presents to the hospital with acute alcohol withdrawals. Acute Alcohol Withdrawal with Delirium alcohol abuse and dependency possible/impending Delerium Tremens Thrombocytopenia history of pancreatitis hypercalcemia transaminitis hypokalemia hypophosphatemia continue ativan PRN started on librium but can not take PO at this time continue high flow nasal O2 and wean as tolerated keep HOB elevated for aspiration precautions IVF changed to D5LR with 20meq of potassium @ 100ml/hr NPO for now DVT PPx with lovenox thrombocyopenia improved today and is up to 118k up from 101k trend CBC thiamine folate and multivitamins Hypercalcemia resolved with IVf-intact PTH 20 AST continues to trend down Kphos 30mmol given by ICU team which is about 44 meq of potassium Afebrile hypertension likely from withdrawals as his BP is currently 135/89 while he is comfortable ICU care Visit type - Emergency Visit Emergency Visit: Yes ED Registration Date: 10/16/19 Care time: The patient presented to the Emergency Department on the above date and was hospitalized for further evaluation of their emergent condition. - New Patient This patient is new to me today: No - Critical Care Critical Care patient: Yes Total Critical Care Time (in minutes): 35 Critical Care Statement: The care of this patient involved high complexity decision making to prevent further life threatening deterioration of the patient 's condition and/or to evaluate & treat vital organ system(s) failure or risk of failure.
[2019-10-18] MEDS: CHLORHEXIDINE GLUCONATE 4% CLEANSER FOR DECOLONIZATION TP SCH (21:31)
[2019-10-18] MEDS ORDERED: BENZOIN/ALOE VERA/STORAX/TOLU 58 ML BOTTLE ONE (23:15)
[2019-10-19] MEDS: LORazepam 2 MG/ML SDV VIAL IVPUSH PRN ×5 (00:36→22:00)
[2019-10-19] MEDS: OFLOXACIN 0.3% OPHTHALMIC SOLUTION 5 ML BOTTLE OU SCH ×5 (05:48→21:26)
[2019-10-19 06:58] LABS: BASO % 0.8 % (0-2.0); EOS % 2.9 % (0-4.5); HEMATOCRIT 35.1 % (35.4-49); HEMOGLOBIN 12.3 GM/dL (11.7-16.9); LYMPH % 13.2 % (8-40); MCH 34.4 pg (25.7-33.7); MCHC 34.9 g/dl (32.0-35.9); MEAN CELL VOLUME 98.4 fl (80-96); MONO % 15.8 % (3.8-10.2); NEUT % 67.3 % (42.8-82.8); PLATELET COUNT 124 K/MM3 (134-434); RBC 3.57 M/mm3 (4.00-5.60); RDW 13.5 % (11.9-15.9)
[2019-10-19 07:23] LABS: ALBUMIN 3.6 g/dl (3.4-5.0); BILIRUBIN,TOTAL 0.6 mg/dL (0.2-1); BLOOD UREA NITROGEN 6.6 mg/dL (7-18); CREATININE 0.6 mg/dL (0.55-1.3); MAGNESIUM 1.8 mg/dL (1.8-2.4); PHOSPHOROUS 3.6 mg/dL (2.5-4.9); POTASSIUM 3.1 mmol/L (3.5-5.1); TOT PROT 6.5 g/dl (6.4-8.2)
[2019-10-19] MEDS: D5-LR+20 MEQ KCL - 20 MEQ/1,000 ML INFUS.BAG IV SCH ×2 (09:00→18:53)
--- NOTE | 2019-10-19 09:11 | PN ---
Teaching Attending Note Name of Resident: Juancarlos Hernandez ATTENDING PHYSICIAN STATEMENT I saw and evaluated the patient. I reviewed the resident's note and discussed the case with the resident. I Librium the resident's findings and plan as documented. SUBJECTIVE: Patient is sedated saturating well on high flow O2 OBJECTIVE: Vital Signs Temperature 98 F 10/19/19 06:00 Pulse Rate 70 10/19/19 06:00 Respiratory Rate 18 10/19/19 06:00 Blood Pressure 141/92 10/19/19 06:00 O2 Sat by Pulse Oximetry (%) 98 10/18/19 22:00 General: Middle-aged man, disheveled sleeping, comfortable, not in distress HEENT; mucous membranes moist, no anemia, no jaundice, PERRLA, no nystagmus Neck: No JVD, supple, no bruit, thyroid palpably normal, normal carotid pulsations. Chest: Nontender, clear to auscultation bilaterally CVS: S1-S2 regular no murmur/gallop/rub Abdomen: Nondistended, soft, bowel sounds present. Extremities: No edema., No cough tenderness, pulses present [employer]: Sedated with Librium no gross motor sensory deficit CBC, BMP 10/19/19 05:45 10/19/19 05:45 Active Medications Chlordiazepoxide HCl (Librium -) 25 mg PO Q6H PRN PRN Reason: WITHDRAWAL(CONT SUBST) Chlorhexidine Gluconate (Hibiclens For Decolonization -) 1 applic TP HS [facility] Last Admin: 10/18/19 21:31 Dose: 1 applic Enoxaparin Sodium (Lovenox -) 40 mg SQ DAILY [facility] Folic Acid (Folic Acid -) 1 mg PO DAILY [facility] Last Admin: 10/18/19 11:43 Dose: Not Given Dextrose/Lactated Ringer's (D5-Lr+20 Meq Kcl -) 20 meq in 1,000 mls @ 100 mls/ hr IV [facility]IR [facility] Last Admin: 10/18/19 21:15 Dose: 100 mls/hr Lorazepam (Ativan Injection -) 4 mg IVPUSH Q1H PRN PRN Reason: AGITATION Last Admin: 10/19/19 02:07 Dose: 4 mg Multivitamins/Minerals/Vitamin C (Tab-A-Vit -) 1 tab PO DAILY [facility] Last Admin: 10/18/19 11:43 Dose: Not Given Mupirocin (Bactroban Ointment (For Decolonization) -) 1 applic NS BID [facility] Stop: 10/22/19 09:59 Last Admin: 10/18/19 21:31 Dose: 1 applic Ofloxacin (Ocuflox 0.3% Eye Drops -) 1 drop OU Q4HWA [facility] Last Admin: 10/19/19 05:48 Dose: 1 drop Thiamine HCl (Vitamin B1 -) 100 mg PO DAILY [facility] Last Admin: 10/18/19 11:43 Dose: Not Given ASSESSMENT AND PLAN: 54 years old male history of alcohol abuse and alcohol induced seizures presents with alcohol intoxication/withdrawal, admitted in ICU for close observation improving on alcohol withdrawal protocol. Labs shows hypokalemia replaced by ICU team. Problem List - Problems (1) Alcohol dependence with withdrawal Assessment/Plan: Continue Librium protocol, thiamine, seizure precautions and close observation ICU follow BMP daily Problems reviewed: Yes Code(s): F10.239 - ALCOHOL DEPENDENCE WITH WITHDRAWAL, UNSPECIFIED Qualifiers: Complication of substance-induced condition: uncomplicated Qualified Code(s ): F10.230 - Alcohol dependence with withdrawal, uncomplicated (2) History of seizure Assessment/Plan: Observe closely for alcohol withdrawal seizures Problems reviewed: Yes Code(s): Z87.898 - PERSONAL HISTORY OF OTHER SPECIFIED CONDITIONS (3) Hypokalemia Assessment/Plan: Potassium is corrected by dissecting we follow BMP and magnesium level. Problems reviewed: Yes Code(s): E87.6 - HYPOKALEMIA
[2019-10-19 09:27] LABS: PH,URINE 5.5 (5.0-8.0); URINE APPEARANCE Clear; URINE BILIRUBIN 1+ (NEGATIVE); URINE COLOR Yellow; URINE GLUCOSE (UA) Negative (NEGATIVE); URINE KETONE 1+ (NEGATIVE); URINE LEUK ESTERASE Negative (NEGATIVE); URINE NITRITE Negative (NEGATIVE); URINE PROTEIN Trace (NEGATIVE); URINE UROBILINOGEN 0.2 mg/dL (0.2-1.0)
[2019-10-19] MEDS: FOLIC ACID 1 MG TABLET (FP) PO SCH (10:58)
[2019-10-19] MEDS: MULTIVITAMINS (DAILY MVI) TABLET (FP) PO SCH (10:58)
[2019-10-19] MEDS: THIAMINE HCL 100 MG TABLET (FP) PO SCH (10:58)
[2019-10-19] MEDS: ENOXAPARIN NA (PORCINE) 40 MG/0.4 ML DISP.SYRIN SQ SCH (11:14)
[2019-10-19] MEDS: MUPIROCIN 2% TOPICAL OINTMENT FOR DECOLONIZATION NS SCH ×2 (11:15→21:27)
--- NOTE | 2019-10-19 12:20 | PN ---
Teaching Attending Note Name of Resident: Viktor Fink ATTENDING PHYSICIAN STATEMENT I saw and evaluated the patient. I reviewed the resident's note and discussed the case with the resident. I agree with the resident's findings and plan as documented. SUBJECTIVE: Pt seen and examined in the ICU. Remains lethargic on HFOT. Received 44mg ativan yesterday. OBJECTIVE: Vital Signs Period Temp Pulse Resp BP Sys/Fraga Pulse Ox Last 24 Hr 98 F-98.6 F 63-109 15-24 130-166/72-119 97-98 Intake & Output 10/16/19 10/17/19 10/18/19 10/19/19 23:59 23:59 23:59 23:59 Intake Total 986 1753 1200 Output Total 200 Balance 986 1753 1000 Weight 79.379 kg 79.3 kg 78.018 kg 76.402 kg Gen: lethargic Heart: RRR Lung: decreased breath sounds at the bases Abd: soft, nontender Ext: no edema CBC, BMP 10/19/19 05:45 10/19/19 05:45 Active Medications Chlordiazepoxide HCl (Librium -) 25 mg PO Q6H PRN PRN Reason: WITHDRAWAL(CONT SUBST) Chlorhexidine Gluconate (Hibiclens For Decolonization -) 1 applic TP HS [facility] Last Admin: 10/18/19 21:31 Dose: 1 applic Enoxaparin Sodium (Lovenox -) 40 mg SQ DAILY [facility] Last Admin: 10/19/19 11:14 Dose: 40 mg Folic Acid (Folic Acid -) 1 mg PO DAILY [facility] Last Admin: 10/19/19 10:58 Dose: Not Given Dextrose/Lactated Ringer's (D5-Lr+20 Meq Kcl -) 20 meq in 1,000 mls @ 100 mls/ hr IV ASDIR [facility] Last Admin: 10/19/19 09:00 Dose: 100 mls/hr Lorazepam (Ativan Injection -) 4 mg IVPUSH Q1H PRN PRN Reason: AGITATION Last Admin: 10/19/19 02:07 Dose: 4 mg Multivitamins/Minerals/Vitamin C (Tab-A-Vit -) 1 tab PO DAILY [facility] Last Admin: 10/19/19 10:58 Dose: Not Given Mupirocin (Bactroban Ointment (For Decolonization) -) 1 applic NS BID [facility] Stop: 10/22/19 09:59 Last Admin: 10/19/19 11:15 Dose: 1 applic Ofloxacin (Ocuflox 0.3% Eye Drops -) 1 drop OU Q4HWA [facility] Last Admin: 10/19/19 11:14 Dose: 1 drop Thiamine HCl (Vitamin B1 -) 100 mg PO DAILY [facility] Last Admin: 10/19/19 10:58 Dose: Not Given ASSESSMENT AND PLAN: Acute Alcohol Withdrawal with Delirium r/o Delerium Tremens Alcohol Abuse Thrombocytopenia - decrease ativan - librium if taking PO - O2 to keep Spo2 >90% - aspiration precautions - IVF - replete lytes - DVT prophylaxis - continue ICU monitoring
[2019-10-19 13:20] LABS: EPI CELLS 4.3 /HPF (0-5/HPF); HYALINE CASTS 9.3 /lpf (0-8); URINE BACTERIA 22.4 /hpf (NEGATIVE); URINE RBC 1.4 /hpf (0-4); URINE WBC 3.5 /hpf (0-5)
--- NOTE | 2019-10-19 13:38 | PN ---
Physical Exam: SUBJECTIVE: Patient seen and examined in the morning. Patient was not responsive to examiner. Received 2 doses of ativan overnight. No events on case monitor. OBJECTIVE: Vital Signs Period Temp Pulse Resp BP Sys/Fraga Pulse Ox Last 24 Hr 98 F-98.6 F 63-109 15-24 119-166/72-119 97-100 GENERAL: Somnolent, when awake is only oriented to self. HEAD: Normal with no signs of trauma. LUNGS: Breath sounds equal, clear to auscultation bilaterally. No wheezes, and no crackles. No accessory muscle use. HEART: Regular rate and rhythm, normal S1 and S2 without murmur, rub or gallop. ABDOMEN: Soft, nontender, not distended, normoactive bowel sounds, no guarding, no rebound, no masses. MUSCULOSKELETAL: Normal range of motion at all joints. No bony deformities or tenderness. No CVA tenderness. EXTREMITIES: 2+ pulses, warm, well-perfused. No calf tenderness. No peripheral edema. NEUROLOGICAL: Not responding coherently to examiner or following command. No tremors noted when patient was slightly awake. SKIN: Warm, dry, normal turgor, no rashes or lesions noted. Laboratory Results - last 24 hr 10/19/19 10/19/19 10/19/19 05:45 05:45 06:00 WBC 5.0 RBC 3.57 L Hgb 12.3 Hct 35.1 L MCV 98.4 H MCH 34.4 H MCHC 34.9 RDW 13.5 Plt Count 124 L MPV 8.0 Absolute Neuts (auto) 3.4 Neutrophils % 67.3 Lymphocytes % 13.2 D Monocytes % 15.8 H Eosinophils % 2.9 D Basophils % 0.8 Nucleated RBC % 0 Sodium 146 H Potassium 3.1 L Chloride 113 H Carbon Dioxide 28 Anion Gap 5 L BUN 6.6 L Creatinine 0.6 Est GFR (CKD-EPI)AfAm 130.27 Est GFR (CKD-EPI)NonAf 112.40 Random Glucose 112 H Calcium 9.0 Phosphorus 3.6 Magnesium 1.8 Total Bilirubin 0.6 AST 29 ALT 36 Alkaline Phosphatase 44 L Total Protein 6.5 Albumin 3.6 Urine Color Yellow Urine Appearance Clear Urine pH 5.5 Ur Specific [place] >= 1.030 Urine Protein Trace Urine Glucose (UA) Negative Urine Ketones 1+ H Urine Blood Negative Urine Nitrite Negative Urine Bilirubin 1+ H Urine Urobilinogen 0.2 Ur Leukocyte Esterase Negative Urine WBC (Auto) 3.5 Urine RBC (Auto) 1.4 Urine Casts (Auto) 9.3 U Epithel Cells (Auto) 4.3 Urine Bacteria (Auto) 22.4 Active Medications Generic Name Dose Route Start Last Admin Trade Name Freq PRN Reason Stop Dose Admin Chlordiazepoxide HCl 25 mg 10/18/19 10:00 Librium - PO Q6H PRN WITHDRAWAL(CONT SUBST) Chlorhexidine Gluconate 1 applic 10/17/19 22:00 10/18/19 21:31 Hibiclens For Decolonization - TP 1 applic HS [facility] Administration Enoxaparin Sodium 40 mg 10/19/19 10:00 10/19/19 11:14 Lovenox - SQ 40 mg DAILY [facility] Administration Folic Acid 1 mg 10/18/19 10:00 10/19/19 10:58 Folic Acid - PO Not Given DAILY [facility] Dextrose/Lactated Ringer's 20 meq in 1,000 mls @ 100 mls/hr 10/18/19 09:00 09:00 D5-Lr+20 Meq Kcl - IV 100 mls/hr ASDIR [facility] Administration Lorazepam 4 mg 10/17/19 03:20 10/19/19 02:07 Ativan Injection - IVPUSH 4 mg Q1H PRN Administration AGITATION Multivitamins/Minerals/Vitamin C 1 tab 10/18/19 10:00 10/19/19 10:58 Tab-A-Vit - PO Not Given DAILY [facility] Mupirocin 1 applic 10/17/19 10:00 10/19/19 11:15 Bactroban Ointment (For Decolonization) - NS 10/22/19 09:59 1 applic BID [facility] Administration Ofloxacin 1 drop 10/18/19 14:00 10/19/19 11:14 Ocuflox 0.3% Eye Drops - OU 1 drop Q4HWA [facility] Administration Thiamine HCl 100 mg 10/18/19 10:00 10/19/19 10:58 Vitamin B1 - PO Not Given DAILY [facility] ASSESSMENT/PLAN: 54 M PMH of alcohol abuse, pancreatitis, OA b/l legs, anxiety, insomnia presents to ED from [facility] after unwitnessed fall and tremors and hallucinations likely secondary to Delirium Tremens. Neuro/Psych -Delirium Tremens -Patient is alert to self only -Patient is agitated and pulling at lines -Head CT negative -Given Valium, Phenobarbital, and ativan in ED -Banana bag given -Continue monitoring, if unable to maintain airway intubate -Neurochecks -Head of bed elevated, seizure precautions -Patient was given 80 mg of IV Valium, 12 mg of IV Ativan, and 570 mg of IV phenobarbital in the emergency department -Continue Ativan 4 mg Q2H PRN IV Cardiovascular -Patient currently Hemodynamically stable -No issues, continue to monitor Pulmonary -Patient remains on High Flow Oxygent -Patient receiving many sedating agents but is maintaining airway. GI -Patient is NPO until mentation improves. -No signs of bleeds, currently stable Renal -No THO -Repleting lytes as necessary. -Stable, will continue to monitor ID -Patient does not show symptoms of infection, will continue to monitor -Lactate of 0.8 F: D5LR +20 meQ K+ @ 100 ml/hr E: Monitor CMP N: NPO DVT: SCD Lines: Peripheral IVs Dispo: We will continue to follow the patient. Thank you for this consultative opportunity. Visit type - Emergency Visit Emergency Visit: Yes ED Registration Date: 10/16/19 Care time: The patient presented to the Emergency Department on the above date and was hospitalized for further evaluation of their emergent condition. - New Patient This patient is new to me today: No - Critical Care Critical Care patient: Yes Total Critical Care Time (in minutes): 45 Critical Care Statement: The care of this patient involved high complexity decision making to prevent further life threatening deterioration of the patient 's condition and/or to evaluate & treat vital organ system(s) failure or risk of failure. ATTENDING PHYSICIAN STATEMENT I saw and evaluated the patient. I reviewed the resident's note and discussed the case with the resident. I agree with the resident's findings and plan as documented. SUBJECTIVE: OBJECTIVE: ASSESSMENT AND PLAN:
[2019-10-19] MEDS: CHLORHEXIDINE GLUCONATE 4% CLEANSER FOR DECOLONIZATION TP SCH (21:26)
[2019-10-20 06:11] LABS: BASO % 0.8 % (0-2.0); EOS % 3.7 % (0-4.5); HEMATOCRIT 34.3 % (35.4-49); HEMOGLOBIN 12.4 GM/dL (11.7-16.9); LYMPH % 13.8 % (8-40); MCH 34.9 pg (25.7-33.7); MEAN CELL VOLUME 96.8 fl (80-96); MEAN PLT VOLUME 8.1 fl (7.5-11.1); MONO % 18.7 % (3.8-10.2); PLATELET COUNT 145 K/MM3 (134-434); RBC 3.54 M/mm3 (4.00-5.60); RDW 13.5 % (11.9-15.9); WHITE BLOOD COUNT 4.8 K/mm3 (4.0-10.0)
[2019-10-20] MEDS: OFLOXACIN 0.3% OPHTHALMIC SOLUTION 5 ML BOTTLE OU SCH ×5 (06:29→21:30)
[2019-10-20 06:38] LABS: ALBUMIN 3.4 g/dl (3.4-5.0); BILIRUBIN,TOTAL 0.7 mg/dL (0.2-1); BLOOD UREA NITROGEN 4.4 mg/dL (7-18); CREATININE 0.6 mg/dL (0.55-1.3); MAGNESIUM 1.7 mg/dL (1.8-2.4); PHOSPHOROUS 2.4 mg/dL (2.5-4.9); POTASSIUM 3.2 mmol/L (3.5-5.1); TOT PROT 6.4 g/dl (6.4-8.2)
[2019-10-20] MEDS: D5-LR+20 MEQ KCL - 20 MEQ/1,000 ML INFUS.BAG IV SCH ×2 (06:38→10:09)
--- NOTE | 2019-10-20 07:30 | PN ---
Physical Exam: SUBJECTIVE: Patient seen and examined KASANDRA. Patient currently states his name, but believes that he is at home and that the year is 2020. Follows commands appropriately. States that he is not feeling any pain. Does not have any current complaints. OBJECTIVE: Vital Signs Period Temp Pulse Resp BP Sys/Fraga Pulse Ox Last 24 Hr 97.3 F-99.0 F 60-96 14-19 119-163/79-136 98-100 GENERAL: The patient is awake, alert, but oriented only to his own name (thinks he is at home and that the year is 2020), in no acute distress. HEAD: Normal with no signs of trauma. EYES: PERRL, extraocular movements intact, sclera anicteric, conjunctiva clear. No ptosis. ENT: Ears normal, nares patent, oropharynx clear without exudates, moist mucous membranes. NECK: Trachea midline, full range of motion, supple. LUNGS: Breath sounds equal, clear to auscultation bilaterally, on high flow O2. HEART: Regular rate and rhythm, S1, S2 without murmur, rub or gallop. ABDOMEN: Soft, nontender, nondistended, normoactive bowel sounds, no guarding, no rebound. EXTREMITIES: 2+ pulses, warm, well-perfused, no edema. NEUROLOGICAL: Cranial nerves II through XII grossly intact. Normal speech, gait not observed. Follows commands appropriately. No tremors currently. PSYCH: Normal mood, normal affect. SKIN: Warm, dry Laboratory Results - last 24 hr 10/19/19 10/19/19 10/20/19 05:45 06:00 05:25 WBC 4.8 RBC 3.54 L Hgb 12.4 Hct 34.3 L MCV 96.8 H MCH 34.9 H MCHC 36.0 H RDW 13.5 Plt Count 145 MPV 8.1 Absolute Neuts (auto) 3.0 Neutrophils % 63.0 Lymphocytes % 13.8 Monocytes % 18.7 H Eosinophils % 3.7 Basophils % 0.8 Nucleated RBC % 0 Sodium 146 H Potassium 3.1 L Chloride 113 H Carbon Dioxide 28 Anion Gap 5 L BUN 6.6 L Creatinine 0.6 Est GFR (CKD-EPI)AfAm 130.27 Est GFR (CKD-EPI)NonAf 112.40 Random Glucose 112 H Calcium 9.0 Phosphorus 3.6 Magnesium 1.8 Total Bilirubin 0.6 AST 29 ALT 36 Alkaline Phosphatase 44 L Total Protein 6.5 Albumin 3.6 Urine Color Yellow Urine Appearance Clear Urine pH 5.5 Ur Specific [place] >= 1.030 Urine Protein Trace Urine Glucose (UA) Negative Urine Ketones 1+ H Urine Blood Negative Urine Nitrite Negative Urine Bilirubin 1+ H Urine Urobilinogen 0.2 Ur Leukocyte Esterase Negative Urine WBC (Auto) 3.5 Urine RBC (Auto) 1.4 Urine Casts (Auto) 9.3 U Epithel Cells (Auto) 4.3 Urine Bacteria (Auto) 22.4 10/20/19 05:25 WBC RBC Hgb Hct MCV MCH MCHC RDW Plt Count MPV Absolute Neuts (auto) Neutrophils % Lymphocytes % Monocytes % Eosinophils % Basophils % Nucleated RBC % Sodium 144 Potassium 3.2 L Chloride 111 H Carbon Dioxide 27 Anion Gap 6 L BUN 4.4 L Creatinine 0.6 Est GFR (CKD-EPI)AfAm 130.27 Est GFR (CKD-EPI)NonAf 112.40 Random Glucose 108 H Calcium 9.0 Phosphorus 2.4 L Magnesium 1.7 L Total Bilirubin 0.7 AST 25 ALT 32 Alkaline Phosphatase 45 Total Protein 6.4 Albumin 3.4 Urine Color Urine Appearance Urine pH Ur Specific [place] Urine Protein Urine Glucose (UA) Urine Ketones Urine Blood Urine Nitrite Urine Bilirubin Urine Urobilinogen Ur Leukocyte Esterase Urine WBC (Auto) Urine RBC (Auto) Urine Casts (Auto) U Epithel Cells (Auto) Urine Bacteria (Auto) Active Medications Generic Name Dose Route Start Last Admin Trade Name Freq PRN Reason Stop Dose Admin Chlordiazepoxide HCl 25 mg 10/18/19 10:00 Librium - PO Q6H PRN WITHDRAWAL(CONT SUBST) Chlorhexidine Gluconate 1 applic 10/17/19 22:00 10/19/19 21:26 Hibiclens For Decolonization - TP 1 applic HS [facility] Administration Enoxaparin Sodium 40 mg 10/19/19 10:00 10/19/19 11:14 Lovenox - SQ 40 mg DAILY [facility] Administration Folic Acid 1 mg 10/18/19 10:00 10/19/19 10:58 Folic Acid - PO Not Given DAILY [facility] Dextrose/Lactated Ringer's 20 meq in 1,000 mls @ 100 mls/hr 10/18/19 09:00 06:38 D5-Lr+20 Meq Kcl - IV 100 mls/hr ASDIR [facility] Administration Potassium Chloride 10 meq in 100 mls @ 100 mls/hr 10/20/19 07:30 Potassium Chloride 10 Meq Premix Ivpb - IVPB 10/20/19 10:29 Q60M [facility] Lorazepam 4 mg 10/19/19 13:32 10/19/19 22:00 Ativan Injection - IVPUSH 4 mg Q2H PRN Administration AGITATION Multivitamins/Minerals/Vitamin C 1 tab 10/18/19 10:00 10/19/19 10:58 Tab-A-Vit - PO Not Given DAILY [facility] Mupirocin 1 applic 10/17/19 10:00 10/19/19 21:27 Bactroban Ointment (For Decolonization) - NS 10/22/19 09:59 1 applic BID [facility] Administration Ofloxacin 1 drop 10/18/19 14:00 10/20/19 06:29 Ocuflox 0.3% Eye Drops - OU Not Given Q4HWA [facility] Thiamine HCl 100 mg 10/18/19 10:00 10/19/19 10:58 Vitamin B1 - PO Not Given DAILY [facility] ASSESSMENT/PLAN: 54 M PMH of alcohol abuse, pancreatitis, OA b/l legs, anxiety, insomnia, initially presented to ED from [facility] after unwitnessed fall, tremors and hallucinations, likely secondary to Delirium Tremens. Neuro/Psych - c/f Delirium Tremens - Patient was given 80 mg of IV Valium, 12 mg of IV Ativan, and 570 mg of IV phenobarbital in the emergency department - Patient is alert to self only - Patient calm this morning - Head CT negative - Banana bag given - if unable to maintain airway, intubate - Neurochecks - Head of bed elevated, seizure precautions - currently getting Ativan 4 mg Q2H PRN IV - plan for PO Librium when patient is able - ctm Cardiovascular - patient currently hypertensive with MAPs in the 110s, but in context of withdrawal - No current acute issues - ctm Pulmonary - Patient remains on high flow, satting 99% - maintaining airway - ctm GI - Patient is NPO until mentation improves - No signs of bleeds, currently stable - ctm Renal - K noted to be low at 3.2 despite being on D5LR +20 meQ @ 100 ml/hr -Repleting lytes as necessary, giving 3 bags of K-rider this AM -Stable, will continue to monitor ID - afebrile - no current symptoms of infection - ctm F: D5LR +20 meQ K+ @ 100 ml/hr E: Monitor CMP, getting 3 bags of K rider this morning due to K of 3.2 N: NPO DVT: - SCDs Lines: - peripheral IVs Dispo: - plan to wean down on Ativan today - start PO medications if possible - potentially wean down the high flow O2 - ctm Visit type - Emergency Visit Emergency Visit: Yes ED Registration Date: 10/16/19 Care time: The patient presented to the Emergency Department on the above date and was hospitalized for further evaluation of their emergent condition. - New Patient This patient is new to me today: No - Critical Care Critical Care patient: Yes Total Critical Care Time (in minutes): 45 Critical Care Statement: The care of this patient involved high complexity decision making to prevent further life threatening deterioration of the patient 's condition and/or to evaluate & treat vital organ system(s) failure or risk of failure. ATTENDING PHYSICIAN STATEMENT I saw and evaluated the patient. I reviewed the resident's note and discussed the case with the resident. I agree with the resident's findings and plan as documented. SUBJECTIVE: OBJECTIVE: ASSESSMENT AND PLAN:
[2019-10-20] MEDS ORDERED: MAGNESIUM SULF 50% (8.12 MEQ/2 ML-1 GM VIAL) IVPB ONE (08:30)
--- NOTE | 2019-10-20 09:16 | PN ---
Progress Note, Physician History of Present Illness: 54 years old male history of alcohol abuse and alcohol induced seizures presents with alcohol intoxication/withdrawal, admitted in ICU for close observation improving on alcohol withdrawal protocol. Labs shows hypokalemia replaced by ICU team. - Current Medication List Current Medications: Active Medications Chlordiazepoxide HCl (Librium -) 25 mg PO Q6H PRN PRN Reason: WITHDRAWAL(CONT SUBST) Chlorhexidine Gluconate (Hibiclens For Decolonization -) 1 applic TP HS [facility] Last Admin: 10/19/19 21:26 Dose: 1 applic Enoxaparin Sodium (Lovenox -) 40 mg SQ DAILY [facility] Last Admin: 10/19/19 11:14 Dose: 40 mg Folic Acid (Folic Acid -) 1 mg PO DAILY [facility] Last Admin: 10/19/19 10:58 Dose: Not Given Dextrose/Lactated Ringer's (D5-Lr+20 Meq Kcl -) 20 meq in 1,000 mls @ 100 mls/ hr IV ASDIR [facility] Last Admin: 10/20/19 06:38 Dose: 100 mls/hr Potassium Chloride (Potassium Chloride 10 Meq Premix Ivpb -) 10 meq in 100 mls @ 100 mls/hr IVPB Q60M [facility] Stop: 10/20/19 11:29 Lorazepam (Ativan Injection -) 4 mg IVPUSH Q2H PRN PRN Reason: AGITATION Last Admin: 10/19/19 22:00 Dose: 4 mg Multivitamins/Minerals/Vitamin C (Tab-A-Vit -) 1 tab PO DAILY [facility] Last Admin: 10/19/19 10:58 Dose: Not Given Mupirocin (Bactroban Ointment (For Decolonization) -) 1 applic NS BID [facility] Stop: 10/22/19 09:59 Last Admin: 10/19/19 21:27 Dose: 1 applic Ofloxacin (Ocuflox 0.3% Eye Drops -) 1 drop OU Q4HWA [facility] Last Admin: 10/20/19 06:29 Dose: Not Given Potassium Phos/Sodium Phos (Phos-Nak Packet -) 1 packet PO BID [facility] Stop: 10/20/19 22:01 Thiamine HCl (Vitamin B1 -) 100 mg PO DAILY [facility] Last Admin: 10/19/19 10:58 Dose: Not Given - Objective Vital Signs: Vital Signs Temperature 98.8 F 10/20/19 06:00 Pulse Rate 79 10/20/19 08:00 Respiratory Rate 17 10/20/19 08:00 Blood Pressure 174/91 H 10/20/19 08:00 O2 Sat by Pulse Oximetry (%) 100 10/19/19 17:23 General: Middle-aged man, disheveled sleeping, comfortable, not in distress HEENT; mucous membranes moist, no anemia, no jaundice, PERRLA, no nystagmus Neck: No JVD, supple, no bruit, thyroid palpably normal, normal carotid pulsations. Chest: Nontender, clear to auscultation bilaterally CVS: S1-S2 regular no murmur/gallop/rub Abdomen: Nondistended, soft, bowel sounds present. 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
[2019-10-20] MEDS: KCL 10 MEQ IVPB 10 MEQ/100 ML INFUS.BAG IVPB SCH ×3 (10:03→11:50)
[2019-10-20] MEDS: ENOXAPARIN NA (PORCINE) 40 MG/0.4 ML DISP.SYRIN SQ SCH (10:09)
[2019-10-20] MEDS: FOLIC ACID 1 MG TABLET (FP) PO SCH (10:09)
[2019-10-20] MEDS: MUPIROCIN 2% TOPICAL OINTMENT FOR DECOLONIZATION NS SCH ×2 (10:09→21:31)
[2019-10-20] MEDS: THIAMINE HCL 100 MG TABLET (FP) PO SCH (10:14)
[2019-10-20] MEDS: NAPH,MB-DB/K PH,MBDB POWDER PACKET PO SCH ×2 (10:14→21:05)
[2019-10-20] MEDS: MULTIVITAMINS (DAILY MVI) TABLET (FP) PO SCH (10:14)
[2019-10-20] MEDS: LORazepam 2 MG/ML SDV VIAL IVPUSH PRN ×2 (10:56→21:27)
--- NOTE | 2019-10-20 12:08 | PN ---
Teaching Attending Note Name of Resident: Tay Butterfield ATTENDING PHYSICIAN STATEMENT I saw and evaluated the patient. I reviewed the resident's note and discussed the case with the resident. I agree with the resident's findings and plan as documented. SUBJECTIVE: Pt seen and examined in the ICU. On HFOT. No fevers recorded. Follows some commands. OBJECTIVE: Vital Signs Period Temp Pulse Resp BP Sys/Fraga Pulse Ox Last 24 Hr 97.3 F-99.0 F 60-87 11-19 131-174/81-136 100-100 Intake & Output 10/17/19 10/18/19 10/19/19 10/20/19 23:59 23:59 23:59 23:59 Intake Total 986 1753 2400 1184 Output Total 500 200 Balance 986 1753 1900 984 Weight 79.3 kg 78.018 kg 76.402 kg 77.292 kg Gen: more alert Heart: RRR Lung: decreased breath sounds at the bases Abd: soft, nontender Ext: no edema CBC, BMP 10/20/19 05:25 10/20/19 05:25 Active Medications Chlordiazepoxide HCl (Librium -) 25 mg PO Q6H PRN PRN Reason: WITHDRAWAL(CONT SUBST) Chlorhexidine Gluconate (Hibiclens For Decolonization -) 1 applic TP HS [facility] Last Admin: 10/19/19 21:26 Dose: 1 applic Enoxaparin Sodium (Lovenox -) 40 mg SQ DAILY [facility] Last Admin: 10/20/19 10:09 Dose: 40 mg Folic Acid (Folic Acid -) 1 mg PO DAILY [facility] Last Admin: 10/20/19 10:09 Dose: Not Given Dextrose/Lactated Ringer's (D5-Lr+20 Meq Kcl -) 20 meq in 1,000 mls @ 100 mls/ hr IV ASDIR [facility] Last Admin: 10/20/19 10:09 Dose: 100 mls/hr Lorazepam (Ativan Injection -) 4 mg IVPUSH Q2H PRN PRN Reason: AGITATION Last Admin: 10/20/19 10:56 Dose: 4 mg Multivitamins/Minerals/Vitamin C (Tab-A-Vit -) 1 tab PO DAILY [facility] Last Admin: 10/20/19 10:14 Dose: Not Given Mupirocin (Bactroban Ointment (For Decolonization) -) 1 applic NS BID [facility] Stop: 10/22/19 09:59 Last Admin: 10/20/19 10:09 Dose: 1 applic Ofloxacin (Ocuflox 0.3% Eye Drops -) 1 drop OU Q4HWA [facility] Last Admin: 10/20/19 10:14 Dose: 1 drop Potassium Phos/Sodium Phos (Phos-Nak Packet -) 1 packet PO BID [facility] Stop: 10/20/19 22:01 Last Admin: 10/20/19 10:14 Dose: Not Given Thiamine HCl (Vitamin B1 -) 100 mg PO DAILY [facility] Last Admin: 10/20/19 10:14 Dose: Not Given ASSESSMENT AND PLAN: Acute Alcohol Withdrawal with Delirium r/o Delerium Tremens Alcohol Abuse Thrombocytopenia - taper ativan - librium if taking PO - O2 to keep Spo2 >90% - aspiration precautions - IVF - replete lytes - DVT prophylaxis - continue ICU monitoring
[2019-10-20 14:27] LABS: COCAINE, UR NEGATIVE ng/ml (CUTOFF=300); METHADONE, UR NEGATIVE ng/ml (CUTOFF=300); OPIATES, URI NEGATIVE ng/ml (CUTOFF=300); PHENCYCLIDINE,URINE NEGATIVE ng/ml (CUTOFF=25); URINE AMPHETAMINES NEGATIVE ng/ml (CUTOFF=500)
--- NOTE | 2019-10-20 14:33 | PN ---
Progress Note, Physician Chief Complaint: Patient remained confused under sedation History of Present Illness: 54 years old male history of alcohol abuse and alcohol induced seizures presents with alcohol intoxication/withdrawal, admitted in ICU for close observation improving on alcohol withdrawal protocol. Labs shows hypokalemia replaced by ICU team. - Current Medication List Current Medications: Active Medications Chlordiazepoxide HCl (Librium -) 25 mg PO Q6H PRN PRN Reason: WITHDRAWAL(CONT SUBST) Chlorhexidine Gluconate (Hibiclens For Decolonization -) 1 applic TP HS [facility] Last Admin: 10/19/19 21:26 Dose: 1 applic Enoxaparin Sodium (Lovenox -) 40 mg SQ DAILY [facility] Last Admin: 10/20/19 10:09 Dose: 40 mg Folic Acid (Folic Acid -) 1 mg PO DAILY [facility] Last Admin: 10/20/19 10:09 Dose: Not Given Dextrose/Lactated Ringer's (D5-Lr+20 Meq Kcl -) 20 meq in 1,000 mls @ 100 mls/ hr IV ASDIR [facility] Last Admin: 10/20/19 10:09 Dose: 100 mls/hr Lorazepam (Ativan Injection -) 4 mg IVPUSH Q2H PRN PRN Reason: AGITATION Last Admin: 10/20/19 10:56 Dose: 4 mg Multivitamins/Minerals/Vitamin C (Tab-A-Vit -) 1 tab PO DAILY [facility] Last Admin: 10/20/19 10:14 Dose: Not Given Mupirocin (Bactroban Ointment (For Decolonization) -) 1 applic NS BID [facility] Stop: 10/22/19 09:59 Last Admin: 10/20/19 10:09 Dose: 1 applic Ofloxacin (Ocuflox 0.3% Eye Drops -) 1 drop OU Q4HWA [facility] Last Admin: 10/20/19 13:54 Dose: 1 drop Potassium Phos/Sodium Phos (Phos-Nak Packet -) 1 packet PO BID [facility] Stop: 10/20/19 22:01 Last Admin: 10/20/19 10:14 Dose: Not Given Thiamine HCl (Vitamin B1 -) 100 mg PO DAILY [facility] Last Admin: 10/20/19 10:14 Dose: Not Given - Objective Vital Signs: Vital Signs Temperature 98.5 F 10/20/19 10:00 Pulse Rate 53 L 10/20/19 12:00 Respiratory Rate 12 10/20/19 12:00 Blood Pressure 125/108 H 10/20/19 12:00 O2 Sat by Pulse Oximetry (%) 100 10/19/19 17:23 General: Middle-aged man, disheveled sleeping, comfortable, not in distress HEENT; mucous membranes moist, no anemia, no jaundice, PERRLA, no nystagmus Neck: No JVD, supple, no bruit, thyroid palpably normal, normal carotid pulsations. Chest: Nontender, clear to auscultation bilaterally CVS: S1-S2 regular no murmur/gallop/rub Abdomen: Nondistended, soft, bowel sounds present. 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 no gross motor sensory deficit Labs: CBC, BMP 10/20/19 05:25 10/20/19 05:25 INR, PTT INR 0.92 (0.83-1.09) 10/16/19 18:18 Problem List - Problems (1) Alcohol dependence with withdrawal Assessment/Plan: Continue alcohol withdrawal protocol, on PRN lorazepam continue, thiamine, seizure precautions and close observation ICU follow BMP daily Code(s): F10.239 - ALCOHOL DEPENDENCE WITH WITHDRAWAL, UNSPECIFIED Qualifiers: Complication of substance-induced condition: uncomplicated Qualified Code(s ): F10.230 - Alcohol dependence with withdrawal, uncomplicated (2) History of seizure Assessment/Plan: Observe closely for alcohol withdrawal seizures Code(s): Z87.898 - PERSONAL HISTORY OF OTHER SPECIFIED CONDITIONS (3) Hypokalemia Assessment/Plan: Potassium is corrected by dissecting we follow BMP and magnesium level. Code(s): E87.6 - HYPOKALEMIA (4) Hypomagnesemia Assessment/Plan: Repleated by ICU team Problems reviewed: Yes Code(s): E83.42 - HYPOMAGNESEMIA
[2019-10-20 15:23] LABS: URINE BARBITURATES POSITIVE ng/ml (CUTOFF=200); URINE BENZODIAZEPINES POSITIVE ng/ml (CUTOFF=200)
[2019-10-20] MEDS: THIAMINE HCL 200 MG/2 ML VIAL IVPB SCH (16:23)
[2019-10-20] MEDS: CHLORHEXIDINE GLUCONATE 4% CLEANSER FOR DECOLONIZATION TP SCH (21:31)
[2019-10-21] MEDS: LORazepam 2 MG/ML SDV VIAL IVPUSH PRN (00:30)
[2019-10-21] MEDS ORDERED: LORazepam 2 MG/ML SDV VIAL IVPUSH ONE ×2 (00:58→17:19)
[2019-10-21] MEDS: OFLOXACIN 0.3% OPHTHALMIC SOLUTION 5 ML BOTTLE OU SCH ×4 (06:30→18:41)
[2019-10-21] MEDS: ENOXAPARIN NA (PORCINE) 40 MG/0.4 ML DISP.SYRIN SQ SCH (09:29)
[2019-10-21] MEDS: THIAMINE HCL 200 MG/2 ML VIAL IVPB SCH (09:29)
[2019-10-21] MEDS: D5-LR+20 MEQ KCL - 20 MEQ/1,000 ML INFUS.BAG IV SCH ×2 (09:31→18:33)
[2019-10-21] MEDS: MUPIROCIN 2% TOPICAL OINTMENT FOR DECOLONIZATION NS SCH (09:32)
[2019-10-21 09:45] LABS: BASO % 1.1 % (0-2.0); EOS % 5.3 % (0-4.5); HEMATOCRIT 35.5 % (35.4-49); HEMOGLOBIN 12.6 GM/dL (11.7-16.9); LYMPH % 16.5 % (8-40); MCH 34.2 pg (25.7-33.7); MCHC 35.4 g/dl (32.0-35.9); MEAN CELL VOLUME 96.7 fl (80-96); MEAN PLT VOLUME 7.5 fl (7.5-11.1); MONO % 21.1 % (3.8-10.2); PLATELET COUNT 178 K/MM3 (134-434); RBC 3.67 M/mm3 (4.00-5.60); RDW 13.3 % (11.9-15.9); WHITE BLOOD COUNT 4.5 K/mm3 (4.0-10.0)
[2019-10-21 10:14] LABS: ALBUMIN 3.3 g/dl (3.4-5.0); BILIRUBIN,TOTAL 0.5 mg/dL (0.2-1); BLOOD UREA NITROGEN 3.9 mg/dL (7-18); CALCIUM 8.7 mg/dL (8.5-10.1); CREATININE 0.5 mg/dL (0.55-1.3); POTASSIUM 3.5 mmol/L (3.5-5.1); TOT PROT 6.3 g/dl (6.4-8.2)
[2019-10-21 13:03] LABS: ANISOCYTOSIS 1+; MACROCYTOSIS 0; PLATELET ESTIMATE NORMAL
--- NOTE | 2019-10-21 14:21 | PN ---
Teaching Attending Note Name of Resident: Viktor Fink ATTENDING PHYSICIAN STATEMENT I saw and evaluated the patient. I reviewed the resident's note and discussed the case with the resident. I agree with the resident's findings and plan as documented. SUBJECTIVE: Pt seen and examined in the ICU. Somnolent, snoring. No fevers recorded. OBJECTIVE: Vital Signs Period Temp Pulse Resp BP Sys/Fraga Pulse Ox Last 24 Hr 97.6 F-98.6 F 55-83 11-19 123-175/71-108 99-99 Intake & Output 10/18/19 10/19/19 10/20/19 10/21/19 23:59 23:59 23:59 23:59 Intake Total 1753 2400 2784 600 Output Total 500 200 Balance 1753 1900 2584 600 Weight 78.018 kg 76.402 kg 77.292 kg 76.204 kg Gen: somnolent Heart: RRR Lung: decreased breath sounds at the bases Abd: soft, nontender Ext: no edema CBC, BMP 10/21/19 09:14 10/21/19 09:14 Active Medications Chlordiazepoxide HCl (Librium -) 25 mg PO Q6H PRN PRN Reason: WITHDRAWAL(CONT SUBST) Chlorhexidine Gluconate (Hibiclens For Decolonization -) 1 applic TP HS [facility] Last Admin: 10/20/19 21:31 Dose: 1 applic Enoxaparin Sodium (Lovenox -) 40 mg SQ DAILY [facility] Last Admin: 10/21/19 09:29 Dose: 40 mg Folic Acid (Folic Acid -) 1 mg PO DAILY [facility] Last Admin: 10/20/19 10:09 Dose: Not Given Dextrose/Lactated Ringer's (D5-Lr+20 Meq Kcl -) 20 meq in 1,000 mls @ 100 mls/ hr IV ASDIR [facility] Last Admin: 10/21/19 09:31 Dose: 100 mls/hr Lorazepam (Ativan Injection -) 4 mg IVPUSH Q4H PRN PRN Reason: AGITATION Last Admin: 10/21/19 00:30 Dose: 4 mg Multivitamins/Minerals/Vitamin C (Tab-A-Vit -) 1 tab PO DAILY [facility] Last Admin: 10/20/19 10:14 Dose: Not Given Mupirocin (Bactroban Ointment (For Decolonization) -) 1 applic NS BID [facility] Stop: 10/22/19 09:59 Last Admin: 10/21/19 09:32 Dose: 1 applic Ofloxacin (Ocuflox 0.3% Eye Drops -) 1 drop OU Q4HWA [facility] Last Admin: 10/21/19 09:32 Dose: 1 drop Thiamine HCl (Vitamin B1 Injection -) 200 mg IVPB DAILY [facility] Last Admin: 10/21/19 09:29 Dose: 200 mg ASSESSMENT AND PLAN: Acute Alcohol Withdrawal with Delirium r/o Delerium Tremens Alcohol Abuse Thrombocytopenia - taper ativan - librium if taking PO - O2 to keep Spo2 >90% - aspiration precautions - IVF - replete lytes - DVT prophylaxis - can monitor on floor
--- NOTE | 2019-10-21 14:31 | PN ---
Progress Note, Physician Chief Complaint: Patient remained confused under sedation History of Present Illness: 54 years old male history of alcohol abuse and alcohol induced seizures presents with alcohol intoxication/withdrawal, admitted in ICU for close observation improving on alcohol withdrawal protocol. Labs shows hypokalemia replaced by ICU team. - Current Medication List Current Medications: Active Medications Chlordiazepoxide HCl (Librium -) 25 mg PO Q6H PRN PRN Reason: WITHDRAWAL(CONT SUBST) Chlorhexidine Gluconate (Hibiclens For Decolonization -) 1 applic TP HS [facility] Last Admin: 10/20/19 21:31 Dose: 1 applic Enoxaparin Sodium (Lovenox -) 40 mg SQ DAILY [facility] Last Admin: 10/21/19 09:29 Dose: 40 mg Folic Acid (Folic Acid -) 1 mg PO DAILY [facility] Last Admin: 10/20/19 10:09 Dose: Not Given Dextrose/Lactated Ringer's (D5-Lr+20 Meq Kcl -) 20 meq in 1,000 mls @ 100 mls/ hr IV ASDIR [facility] Last Admin: 10/21/19 09:31 Dose: 100 mls/hr Lorazepam (Ativan Injection -) 4 mg IVPUSH Q4H PRN PRN Reason: AGITATION Last Admin: 10/21/19 00:30 Dose: 4 mg Multivitamins/Minerals/Vitamin C (Tab-A-Vit -) 1 tab PO DAILY [facility] Last Admin: 10/20/19 10:14 Dose: Not Given Mupirocin (Bactroban Ointment (For Decolonization) -) 1 applic NS BID [facility] Stop: 10/22/19 09:59 Last Admin: 10/21/19 09:32 Dose: 1 applic Ofloxacin (Ocuflox 0.3% Eye Drops -) 1 drop OU Q4HWA [facility] Last Admin: 10/21/19 09:32 Dose: 1 drop Thiamine HCl (Vitamin B1 Injection -) 200 mg IVPB DAILY [facility] Last Admin: 10/21/19 09:29 Dose: 200 mg - Objective Vital Signs: Temperature 98.6 F 10/21/19 14:00 Pulse Rate 68 10/21/19 14:00 Respiratory Rate 14 10/21/19 14:00 Blood Pressure 132/90 10/21/19 14:00 O2 Sat by Pulse Oximetry (%) 99 10/21/19 08:26 General: Middle-aged man, disheveled sleeping, comfortable, not in distress HEENT; mucous membranes moist, no anemia, no jaundice, PERRLA, no nystagmus Neck: No JVD, supple, no bruit, thyroid palpably normal, normal carotid pulsations. Chest: Nontender, clear to auscultation bilaterally CVS: S1-S2 regular no murmur/gallop/rub Abdomen: Nondistended, soft, bowel sounds present. 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 no gross motor sensory deficit CBC, BMP 10/21/19 09:14 10/21/19 09:14 CT head October 16, 2019: Normal CT C-spine October 16, 2019: No acute fracture or dislocation Labs: CBC, BMP 10/21/19 09:14 10/21/19 09:14 INR, PTT INR 0.92 (0.83-1.09) 10/16/19 18:18 Problem List - Problems (1) Alcohol dependence with withdrawal Assessment/Plan: Continue alcohol withdrawal protocol, on PRN lorazepam continue, thiamine, seizure precautions and close observation ICU follow BMP daily Code(s): F10.239 - ALCOHOL DEPENDENCE WITH WITHDRAWAL, UNSPECIFIED Qualifiers: Complication of substance-induced condition: uncomplicated Qualified Code(s ): F10.230 - Alcohol dependence with withdrawal, uncomplicated (2) History of seizure Assessment/Plan: Observe closely for alcohol withdrawal seizures Code(s): Z87.898 - PERSONAL HISTORY OF OTHER SPECIFIED CONDITIONS (3) Hypokalemia Assessment/Plan: Potassium is corrected by dissecting we follow BMP and magnesium level. Problems reviewed: Yes Code(s): E87.6 - HYPOKALEMIA (4) Hypomagnesemia Assessment/Plan: Repleated by ICU team Code(s): E83.42 - HYPOMAGNESEMIA
[2019-10-21] MEDS: FOLIC ACID 1 MG TABLET (FP) PO SCH (15:22)
[2019-10-21] MEDS: MULTIVITAMINS (DAILY MVI) TABLET (FP) PO SCH (15:23)
--- NOTE | 2019-10-21 15:57 | PN ---
Physical Exam: SUBJECTIVE: Patient seen and examined in the morning. Patient was not responsive to examiner. Received 2 doses of ativan overnight. No events on child monitor. OBJECTIVE: Vital Signs Period Temp Pulse Resp BP Sys/Fraga Pulse Ox Last 24 Hr 97.6 F-98.6 F 55-83 11-19 123-175/71-108 99-100 GENERAL: Somnolent, did not wake during exam. HEAD: Normal with no signs of trauma. LUNGS: Breath sounds equal, clear to auscultation bilaterally. No wheezes, and no crackles. No accessory muscle use. HEART: Regular rate and rhythm, normal S1 and S2 without murmur, rub or gallop. ABDOMEN: Soft, nontender, not distended, normoactive bowel sounds, no guarding, no rebound, no masses. MUSCULOSKELETAL: Normal range of motion at all joints. No bony deformities or tenderness. No CVA tenderness. EXTREMITIES: 2+ pulses, warm, well-perfused. No calf tenderness. No peripheral edema. NEUROLOGICAL: Not responding coherently to examiner or following command. No tremors noted when patient was slightly awake. SKIN: Warm, dry, normal turgor, no rashes or lesions noted. Laboratory Results - last 24 hr 10/21/19 10/21/19 09:14 09:14 WBC 4.5 RBC 3.67 L Hgb 12.6 Hct 35.5 MCV 96.7 H MCH 34.2 H MCHC 35.4 RDW 13.3 Plt Count 178 D MPV 7.5 Absolute Neuts (auto) 2.5 Neutrophils % 56.0 Neutrophils % (Manual) 52.9 Band Neutrophils % 2.9 Lymphocytes % 16.5 Lymphocytes % (Manual) 12.8 Monocytes % 21.1 H Monocytes % (Manual) 21 H Eosinophils % 5.3 H Eosinophils % (Manual) 4.9 H Basophils % 1.1 Basophils % (Manual) 0.0 Myelocytes % (Man) 0 Promyelocytes % (Man) 0 Blast Cells % (Manual) 0 Nucleated RBC % 2 H Metamyelocytes 0 Hypochromia 0 Platelet Estimate Normal Platelet Comment Present Polychromasia 0 Poikilocytosis 1+ Anisocytosis 1+ Microcytosis 1+ Macrocytosis 0 Spherocytes 1+ Sodium 140 Potassium 3.5 Chloride 107 Carbon Dioxide 29 Anion Gap 4 L BUN 3.9 L Creatinine 0.5 L Est GFR (CKD-EPI)AfAm 140.40 Est GFR (CKD-EPI)NonAf 121.14 Random Glucose 110 H Calcium 8.7 Total Bilirubin 0.5 AST 21 ALT 28 Alkaline Phosphatase 44 L Total Protein 6.3 L Albumin 3.3 L Active Medications Generic Name Dose Route Start Last Admin Trade Name Freq PRN Reason Stop Dose Admin Chlordiazepoxide HCl 25 mg 10/18/19 10:00 Librium - PO Q6H PRN WITHDRAWAL(CONT SUBST) Chlorhexidine Gluconate 1 applic 10/17/19 22:00 10/20/19 21:31 Hibiclens For Decolonization - TP 1 applic HS [facility] Administration Enoxaparin Sodium 40 mg 10/19/19 10:00 10/21/19 09:29 Lovenox - SQ 40 mg DAILY [facility] Administration Folic Acid 1 mg 10/18/19 10:00 10/21/19 15:22 Folic Acid - PO Not Given DAILY [facility] Dextrose/Lactated Ringer's 20 meq in 1,000 mls @ 100 mls/hr 10/18/19 09:00 09:31 D5-Lr+20 Meq Kcl - IV 100 mls/hr ASDIR [facility] Administration Lorazepam 4 mg 10/20/19 15:20 10/21/19 00:30 Ativan Injection - IVPUSH 4 mg Q4H PRN Administration AGITATION Multivitamins/Minerals/Vitamin C 1 tab 10/18/19 10:00 10/21/19 15:23 Tab-A-Vit - PO Not Given DAILY [facility] Mupirocin 1 applic 10/17/19 10:00 10/21/19 09:32 Bactroban Ointment (For Decolonization) - NS 10/22/19 09:59 1 applic BID [facility] Administration Ofloxacin 1 drop 10/18/19 14:00 10/21/19 14:00 Ocuflox 0.3% Eye Drops - OU 1 drop Q4HWA [facility] Administration Thiamine HCl 200 mg 10/20/19 15:45 10/21/19 09:29 Vitamin B1 Injection - IVPB 200 mg DAILY [facility] Administration ASSESSMENT/PLAN: 54 M PMH of alcohol abuse, pancreatitis, OA b/l legs, anxiety, insomnia presents to ED from [facility] after unwitnessed fall and tremors and hallucinations likely secondary to Delirium Tremens. Neuro/Psych -Delirium Tremens -Patient is alert to self only -Patient is agitated and pulling at lines -Head CT negative -Given Valium, Phenobarbital, and ativan in ED -Banana bag given -Continue monitoring, if unable to maintain airway intubate -Neurochecks -Head of bed elevated, seizure precautions -Patient was given 80 mg of IV Valium, 12 mg of IV Ativan, and 570 mg of IV phenobarbital in the emergency department -Continue Ativan 4 mg Q4 PRN IV Cardiovascular -Patient currently Hemodynamically stable -No issues, continue to monitor Pulmonary -Patient remains on High Flow Oxygent -Patient receiving many sedating agents but is maintaining airway. GI -Patient is NPO until mentation improves. -No signs of bleeds, currently stable Renal -No THO -Repleting lytes as necessary. -Stable, will continue to monitor ID -Patient does not show symptoms of infection, will continue to monitor -Lactate of 0.8 F: D5LR +20 meQ K+ @ 100 ml/hr. Clinimix @83 ml/hr E: Monitor CMP N: NPO DVT: SCD Lines: Peripheral IVs Dispo: transfer to med/surg Visit type - Emergency Visit Emergency Visit: Yes ED Registration Date: 10/16/19 Care time: The patient presented to the Emergency Department on the above date and was hospitalized for further evaluation of their emergent condition. - New Patient This patient is new to me today: No - Critical Care Critical Care patient: Yes Total Critical Care Time (in minutes): 45 Critical Care Statement: The care of this patient involved high complexity decision making to prevent further life threatening deterioration of the patient 's condition and/or to evaluate & treat vital organ system(s) failure or risk of failure. ATTENDING PHYSICIAN STATEMENT I saw and evaluated the patient. I reviewed the resident's note and discussed the case with the resident. I agree with the resident's findings and plan as documented. SUBJECTIVE: OBJECTIVE: ASSESSMENT AND PLAN:
[2019-10-21] MEDS ORDERED: LORazepam 2 MG/ML SDV VIAL IVPUSH PRN (17:19)
[2019-10-21] MEDS ORDERED: chlordiazePOXIDE HCL 25 MG CAPSULE PO PRN (17:19)
[2019-10-21] MEDS ORDERED: PT OWN MED DRAWER 7, Y5N ONE ×2 (18:29→18:42)
[2019-10-21] MEDS: AMINO ACIDS 4.25%/D5W 1,000 ML IV SCH (18:31)
[2019-10-21] MEDS ORDERED: MUPIROCIN 2% TOPICAL OINTMENT FOR DECOLONIZATION NS SCH (22:00)
[2019-10-21] MEDS ORDERED: CHLORHEXIDINE GLUCONATE 4% CLEANSER FOR DECOLONIZATION TP SCH (22:00)
[2019-10-22] MEDS ORDERED: PT OWN MED DRAWER 7, Y5N ONE ×2 (00:24→09:09)
[2019-10-22] MEDS: OFLOXACIN 0.3% OPHTHALMIC SOLUTION 5 ML BOTTLE OU SCH ×6 (01:39→21:22)
[2019-10-22 09:53] LABS: BASO % 0.9 % (0-2.0); EOS % 3.9 % (0-4.5); HEMOGLOBIN 13.3 GM/dL (11.7-16.9); LYMPH % 16.9 % (8-40); MCH 34.4 pg (25.7-33.7); MCHC 35.9 g/dl (32.0-35.9); MEAN CELL VOLUME 95.7 fl (80-96); MEAN PLT VOLUME 7.8 fl (7.5-11.1); MONO % 19.2 % (3.8-10.2); NEUT % 59.1 % (42.8-82.8); PLATELET COUNT 228 K/MM3 (134-434); RBC 3.87 M/mm3 (4.00-5.60); RDW 13.5 % (11.9-15.9); WHITE BLOOD COUNT 5.1 K/mm3 (4.0-10.0)
--- NOTE | 2019-10-22 09:57 | PN ---
Progress Note, Physician Chief Complaint: today more alert but still confused History of Present Illness: 54 years old male history of alcohol abuse and alcohol induced seizures presents with alcohol intoxication/withdrawal, admitted in ICU for close observation improving on alcohol withdrawal protocol. - Current Medication List Current Medications: Active Medications Chlordiazepoxide HCl (Librium -) 25 mg PO Q6H PRN PRN Reason: WITHDRAWAL(CONT SUBST) Enoxaparin Sodium (Lovenox -) 40 mg SQ DAILY [facility] Folic Acid (Folic Acid -) 1 mg PO DAILY [facility] Amino Acids (Clinimix -) 1,000 mls @ 84 mls/hr IV Q12H [facility] Last Admin: 10/21/19 18:31 Dose: 84 mls/hr Dextrose/Lactated Ringer's (D5-Lr+20 Meq Kcl -) 20 meq in 1,000 mls @ 100 mls/ hr IV ASDIR [facility] Last Admin: 10/21/19 18:33 Dose: Not Given Lorazepam (Ativan Injection -) 4 mg IVPUSH Q4H PRN PRN Reason: AGITATION Multivitamins/Minerals/Vitamin C (Tab-A-Vit -) 1 tab PO DAILY [facility] Ofloxacin (Ocuflox 0.3% Eye Drops -) 1 drop OU Q4HWA [facility] Last Admin: 10/22/19 01:39 Dose: 1 drop Thiamine HCl (Vitamin B1 Injection -) 200 mg IVPB DAILY [facility] - Objective Vital Signs: Vital Signs Temperature 98.3 F 10/22/19 06:00 Pulse Rate 67 10/22/19 06:00 Respiratory Rate 20 10/22/19 06:00 Blood Pressure 143/57 L 10/22/19 06:00 O2 Sat by Pulse Oximetry (%) 100 10/21/19 12:00 General: Middle-aged man, disheveled sleeping, comfortable, not in distress HEENT; mucous membranes moist, no anemia, no jaundice, PERRLA, no nystagmus Neck: No JVD, supple, no bruit, thyroid palpably normal, normal carotid pulsations. Chest: Nontender, clear to auscultation bilaterally CVS: S1-S2 regular no murmur/gallop/rub Abdomen: Nondistended, soft, bowel sounds present. 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 to come out of the bed Labs: CBC, BMP 10/22/19 08:27 INR, PTT INR 0.92 (0.83-1.09) 10/16/19 18:18 CBC, BMP 10/22/19 08:27 10/22/19 08:27 Problem List - Problems (1) Alcohol dependence with withdrawal Assessment/Plan: Continue alcohol withdrawal protocol, on PRN lorazepam continue, Librium thiamine, seizure precautions and close observation for DTs BMP daily Code(s): F10.239 - ALCOHOL DEPENDENCE WITH WITHDRAWAL, UNSPECIFIED Qualifiers: Complication of substance-induced condition: uncomplicated Qualified Code(s ): F10.230 - Alcohol dependence with withdrawal, uncomplicated (2) History of seizure Assessment/Plan: Observe closely for alcohol withdrawal seizures Code(s): Z87.898 - PERSONAL HISTORY OF OTHER SPECIFIED CONDITIONS (3) Hypokalemia Assessment/Plan: Potassium is corrected will follow-up BMP and magnesium level. Code(s): E87.6 - HYPOKALEMIA (4) Hypomagnesemia Assessment/Plan: Repleated by ICU team Code(s): E83.42 - HYPOMAGNESEMIA
[2019-10-22] MEDS: FOLIC ACID 1 MG TABLET (FP) PO SCH (10:00)
[2019-10-22] MEDS: MULTIVITAMINS (DAILY MVI) TABLET (FP) PO SCH (10:05)
[2019-10-22] MEDS: ENOXAPARIN NA (PORCINE) 40 MG/0.4 ML DISP.SYRIN SQ SCH (10:05)
[2019-10-22 10:23] LABS: ALBUMIN 3.8 g/dl (3.4-5.0); BILIRUBIN,TOTAL 0.7 mg/dL (0.2-1); BLOOD UREA NITROGEN 8.4 mg/dL (7-18); CALCIUM 9.4 mg/dL (8.5-10.1); CREATININE 0.6 mg/dL (0.55-1.3); MAGNESIUM 1.9 mg/dL (1.8-2.4); PHOSPHOROUS 2.9 mg/dL (2.5-4.9); POTASSIUM 3.4 mmol/L (3.5-5.1)
[2019-10-22] MEDS: AMINO ACIDS 4.25%/D5W 1,000 ML IV SCH ×2 (10:25→18:39)
--- NOTE | 2019-10-22 12:50 | CONSULT ---
Admitting History and Physical - Admission History of Present Illness: 54 M PMH of alcohol abuse, pancreatitis, OA b/l legs, anxiety, insomnia, initially presented to ED from [facility] after unwitnessed fall, tremors and hallucinations. Here for alcohol induced seizures presents with alcohol intoxication/withdrawal Selected Entries 10/22/19 10/22/19 10/22/19 02:00 06:00 10:00 Supper NPO Temperature 98.1 F 98.3 F 98.3 F 10/22/19 11:40 Supper NPO Temperature 98.6 F Laboratory Tests 10/22/19 08:27 WBC 5.1 Pt strict NPO including medication, unable to receive Librium. Lethargic most of time. Combative when alert. History Source: Medical Record Limitations to Obtaining History: Clinical Condition - Smoking History Smoking history: Current every day smoker Have you smoked in the past 12 months: Yes Aproximately how many cigarettes per day: 8 - Alcohol/Substance Use Hx Alcohol Use: Yes History - Admission Reason For Visit: ALCOHOL WITHDRAWAL DELIRIUM - Diagnostics X-ray: Report Reviewed CT Scan: Report Reviewed - General Mental Status: Forgetful, Vague, Confused, Lethargic (arousable, confused, speech slurred) - Hearing Hearing: Normal Speech Evaluation - Communication Primary Language: YI Communication: Yes: Simple Responses (imprecise) - Speech Characteristics Voice Loudness: Normal Voice Pitch: Yes: Normal Voice Phonatory-based Quality: Yes: Normal Speech Pattern: Normal Speech Clarity: < 75% Nasal Resonance: Normal Articulation: Yes: Imprecise (lethargy) - Language/Auditory Comprehension Follows: Yes: 1 Stage Simple Commands - Swallow Evaluation/Bedside Assessment Current Nutritional Intake: NPO Oral Secretions: Yes: WFL Dentition: Yes: Adequate Facial Symmetry at Rest: Symmetrical Lingual Movement: Symmetric Timing of Swallow: Delayed Coughing/Throat Clear: Yes (slight) Recommendations - Speech Evaluation, Impression/Plan Impression: Lethargy adversely affects swallowing efficiency and safety. Swallow is delayed, with slight throat clearing noted. Maintain NPO if too lethargic for safe PO trials. Trial of medication in applesauce if sufficiently awake is reasonable at this time. May need to rearouse him to tell him to swallow repeatedly until achieved. Keep upright after intake. - Dysphagia Impressions/Plan Swallowing Skills: Impaired (due to lethargy/ativan/withdrawel) Recommendations: Other (Clinimix ordered) - Recommendations Diet Consistency: NPO Medication Administration: Crushed with applesauce Liquids: NPO
[2019-10-22] MEDS ORDERED: POTASSIUM CHLORIDE ORAL LIQUID 20 MEQ/15 ML PO ONE (13:30)
[2019-10-22] MEDS: THIAMINE HCL 200 MG/2 ML VIAL IVPB SCH (13:50)
[2019-10-22] MEDS: D5-LR+20 MEQ KCL - 20 MEQ/1,000 ML INFUS.BAG IV SCH (18:40)
[2019-10-22 18:59] LABS: ARTERIAL BLD GAS O2 SATURATION 95.7 % (95-98); ARTERIAL BLOOD GAS BASE EXCESS 2.6 meq/l (-2-2); ARTERIAL BLOOD GAS PO2 76.8 mmHg (80-100); ARTERIAL BLOOD GAS pH 7.41 (7.35-7.45)
[2019-10-22 19:00] LABS: ALLENS TEST POSITIVE
[2019-10-23] MEDS: AMINO ACIDS 4.25%/D5W 1,000 ML IV SCH ×3 (05:35→17:43)
[2019-10-23] MEDS: OFLOXACIN 0.3% OPHTHALMIC SOLUTION 5 ML BOTTLE OU SCH ×5 (05:36→23:00)
[2019-10-23 08:51] LABS: BASO % 0.9 % (0-2.0); EOS % 4.6 % (0-4.5); HEMATOCRIT 37.3 % (35.4-49); HEMOGLOBIN 13.4 GM/dL (11.7-16.9); LYMPH % 20.3 % (8-40); MCH 34.3 pg (25.7-33.7); MCHC 35.9 g/dl (32.0-35.9); MEAN CELL VOLUME 95.5 fl (80-96); MEAN PLT VOLUME 7.9 fl (7.5-11.1); MONO % 18.1 % (3.8-10.2); NEUT % 56.1 % (42.8-82.8); PLATELET COUNT 248 K/MM3 (134-434); RDW 13.4 % (11.9-15.9); WHITE BLOOD COUNT 4.9 K/mm3 (4.0-10.0)
--- NOTE | 2019-10-23 09:03 | PN ---
Progress Note, Physician Chief Complaint: today more alert participating in communication History of Present Illness: 54 years old male history of alcohol abuse and alcohol induced seizures presents with alcohol intoxication/withdrawal, admitted in ICU for close observation improving on alcohol withdrawal protocol. - Current Medication List Current Medications: Active Medications Chlordiazepoxide HCl (Librium -) 25 mg PO Q6H PRN PRN Reason: WITHDRAWAL(CONT SUBST) Enoxaparin Sodium (Lovenox -) 40 mg SQ DAILY [facility] Last Admin: 10/22/19 10:05 Dose: 40 mg Folic Acid (Folic Acid -) 1 mg PO DAILY [facility] Last Admin: 10/22/19 10:00 Dose: Not Given Amino Acids (Clinimix -) 1,000 mls @ 84 mls/hr IV Q12H [facility] Last Admin: 10/23/19 05:35 Dose: 84 mls/hr Lorazepam (Ativan Injection -) 4 mg IVPUSH Q4H PRN PRN Reason: AGITATION Multivitamins/Minerals/Vitamin C (Tab-A-Vit -) 1 tab PO DAILY [facility] Last Admin: 10/22/19 10:05 Dose: Not Given Ofloxacin (Ocuflox 0.3% Eye Drops -) 1 drop OU Q4HWA [facility] Last Admin: 10/23/19 05:36 Dose: 1 drop Thiamine HCl (Vitamin B1 Injection -) 200 mg IVPB DAILY [facility] Last Admin: 10/22/19 13:50 Dose: 200 mg - Objective Vital Signs: Vital Signs Temperature 97.9 F 10/23/19 04:00 Pulse Rate 56 L 10/23/19 04:00 Respiratory Rate 20 10/23/19 04:00 Blood Pressure 126/78 10/23/19 04:00 O2 Sat by Pulse Oximetry (%) 97 10/23/19 00:06 General: Middle-aged man, disheveled sleeping, comfortable, not in distress HEENT; mucous membranes moist, no anemia, no jaundice, PERRLA, no nystagmus Neck: No JVD, supple, no bruit, thyroid palpably normal, normal carotid pulsations. Chest: Nontender, clear to auscultation bilaterally CVS: S1-S2 regular no murmur/gallop/rub Abdomen: Nondistended, soft, bowel sounds present. 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 Labs: CBC, BMP 10/23/19 07:20 INR, PTT INR 0.92 (0.83-1.09) 10/16/19 18:18 CBC, BMP 10/23/19 07:20 10/23/19 07:20 Problem List - Problems (1) Alcohol dependence with withdrawal Assessment/Plan: Continue alcohol withdrawal protocol, on PRN lorazepam continue, Librium thiamine, seizure precautions and close observation for DTs BMP daily Code(s): F10.239 - ALCOHOL DEPENDENCE WITH WITHDRAWAL, UNSPECIFIED Qualifiers: Complication of substance-induced condition: uncomplicated Qualified Code(s ): F10.230 - Alcohol dependence with withdrawal, uncomplicated (2) History of seizure Assessment/Plan: Observe closely for alcohol withdrawal seizures Code(s): Z87.898 - PERSONAL HISTORY OF OTHER SPECIFIED CONDITIONS (3) Hypokalemia Assessment/Plan: Potassium 3.2 is corrected will follow-up BMP and magnesium level. Code(s): E87.6 - HYPOKALEMIA (4) Hypomagnesemia Assessment/Plan: Repleated by ICU team Code(s): E83.42 - HYPOMAGNESEMIA
[2019-10-23 09:06] LABS: BLOOD UREA NITROGEN 14.3 mg/dL (7-18); CALCIUM 9.4 mg/dL (8.5-10.1); CREATININE 0.6 mg/dL (0.55-1.3); POTASSIUM 3.2 mmol/L (3.5-5.1)
[2019-10-23] MEDS: FOLIC ACID 1 MG TABLET (FP) PO SCH (10:32)
[2019-10-23] MEDS: THIAMINE HCL 200 MG/2 ML VIAL IVPB SCH (10:32)
[2019-10-23] MEDS: MULTIVITAMINS (DAILY MVI) TABLET (FP) PO SCH (10:32)
[2019-10-23] MEDS: ENOXAPARIN NA (PORCINE) 40 MG/0.4 ML DISP.SYRIN SQ SCH (10:35)
[2019-10-23] MEDS ORDERED: POTASSIUM CHLORIDE ORAL LIQUID 20 MEQ/15 ML PO ONE (10:38)
--- NOTE | 2019-10-23 13:00 | PN ---
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 Swallow reassessed with brisk swallow. (-) 3 oz water test. Missing dentition. Suggest trial of soft, easy to chew foods, thin liquid.m Assist with meals. Monitor tolerance
[2019-10-23] MEDS ORDERED: chlordiazePOXIDE HCL 10 MG CAPSULE PO PRN (13:18)
[2019-10-23] MEDS ORDERED: LORazepam 2 MG/ML SDV VIAL IVPUSH ONE (21:26)
[2019-10-24] MEDS ORDERED: LORazepam 2 MG/ML SDV VIAL IVPUSH ONE (05:03)
[2019-10-24] MEDS: AMINO ACIDS 4.25%/D5W 1,000 ML IV SCH ×3 (05:35→16:59)
[2019-10-24] MEDS: OFLOXACIN 0.3% OPHTHALMIC SOLUTION 5 ML BOTTLE OU SCH ×5 (05:56→21:19)
[2019-10-24 07:30] LABS: BASO % 0.8 % (0-2.0); HEMOGLOBIN 14.1 GM/dL (11.7-16.9); LYMPH % 13.1 % (8-40); MCH 34.3 pg (25.7-33.7); MCHC 36.2 g/dl (32.0-35.9); MEAN CELL VOLUME 94.8 fl (80-96); MEAN PLT VOLUME 7.8 fl (7.5-11.1); MONO % 12.9 % (3.8-10.2); NEUT % 71.2 % (42.8-82.8); PLATELET COUNT 312 K/MM3 (134-434); RBC 4.12 M/mm3 (4.00-5.60); RDW 13.4 % (11.9-15.9)
[2019-10-24 08:05] LABS: BLOOD UREA NITROGEN 14.1 mg/dL (7-18); CALCIUM 9.7 mg/dL (8.5-10.1); CREATININE 0.7 mg/dL (0.55-1.3); MAGNESIUM 1.8 mg/dL (1.8-2.4); POTASSIUM 3.4 mmol/L (3.5-5.1)
[2019-10-24] MEDS: FOLIC ACID 1 MG TABLET (FP) PO SCH (10:30)
[2019-10-24] MEDS: ENOXAPARIN NA (PORCINE) 40 MG/0.4 ML DISP.SYRIN SQ SCH (10:30)
[2019-10-24] MEDS: MULTIVITAMINS (DAILY MVI) TABLET (FP) PO SCH (10:30)
[2019-10-24] MEDS: THIAMINE HCL 200 MG/2 ML VIAL IVPB SCH (10:30)
--- NOTE | 2019-10-24 18:58 | PN ---
Progress Note, Physician Chief Complaint: ams History of Present Illness: seen and examined bedside, patient restless trying to get out of bed - Current Medication List Current Medications: Active Medications Chlordiazepoxide HCl (Librium -) 10 mg PO Q6H PRN PRN Reason: WITHDRAWAL(CONT SUBST) Enoxaparin Sodium (Lovenox -) 40 mg SQ DAILY [facility] Last Admin: 10/24/19 10:30 Dose: 40 mg Folic Acid (Folic Acid -) 1 mg PO DAILY [facility] Last Admin: 10/24/19 10:30 Dose: 1 mg Amino Acids (Clinimix -) 1,000 mls @ 84 mls/hr IV Q12H [facility] Last Admin: 10/24/19 16:59 Dose: Not Given Multivitamins/Minerals/Vitamin C (Tab-A-Vit -) 1 tab PO DAILY [facility] Last Admin: 10/24/19 10:30 Dose: 1 tab Ofloxacin (Ocuflox 0.3% Eye Drops -) 1 drop OU Q4HWA [facility] Last Admin: 10/24/19 18:40 Dose: 1 drop Thiamine HCl (Vitamin B1 Injection -) 200 mg IVPB DAILY [facility] Last Admin: 10/24/19 10:30 Dose: 200 mg - Objective Vital Signs: Vital Signs Temperature 97.5 F L 10/24/19 16:30 Pulse Rate 78 10/24/19 16:30 Respiratory Rate 20 10/24/19 16:30 Blood Pressure 142/79 10/24/19 16:30 O2 Sat by Pulse Oximetry (%) 97 10/24/19 09:00 Constitutional: Yes: Other (restless) Cardiovascular: Yes: WNL, Regular Rate and Rhythm Respiratory: Yes: WNL, Regular, CTA Bilaterally Gastrointestinal: Yes: WNL, Normal Bowel Sounds, Soft Extremities: Yes: WNL Edema: No Neurological: Yes: Other (oriented to place and person only) Labs: CBC, BMP 10/24/19 06:30 10/24/19 06:30 INR, PTT INR 0.92 (0.83-1.09) 10/16/19 18:18 Problem List - Problems (1) Delirium tremens Code(s): F10.231 - ALCOHOL DEPENDENCE WITH WITHDRAWAL DELIRIUM (2) Hypokalemia Code(s): E87.6 - HYPOKALEMIA (3) Hypomagnesemia Code(s): E83.42 - HYPOMAGNESEMIA (4) Alcohol dependence with withdrawal Code(s): F10.239 - ALCOHOL DEPENDENCE WITH WITHDRAWAL, UNSPECIFIED Qualifiers: Complication of substance-induced condition: uncomplicated Qualified Code(s ): F10.230 - Alcohol dependence with withdrawal, uncomplicated (5) Alcohol intoxication Code(s): F10.929 - ALCOHOL USE, UNSPECIFIED WITH INTOXICATION, UNSPECIFIED Qualifiers: Complication of substance-induced condition: uncomplicated Qualified Code(s ): F10.920 - Alcohol use, unspecified with intoxication, uncomplicated (6) Chronic alcoholism Code(s): F10.20 - ALCOHOL DEPENDENCE, UNCOMPLICATED (7) History of seizure Code(s): Z87.898 - PERSONAL HISTORY OF OTHER SPECIFIED CONDITIONS Assessment/Plan Assessment: ETOH withdrawals ETOH induced seizure hx Electrolyte disturbances Plan: Continue with detox protocol restraints folic acid and thiamine replete and monitor lytes monitor AM labs
[2019-10-25] MEDS: AMINO ACIDS 4.25%/D5W 1,000 ML IV SCH ×2 (05:36→17:39)
[2019-10-25] MEDS: OFLOXACIN 0.3% OPHTHALMIC SOLUTION 5 ML BOTTLE OU SCH ×5 (05:36→21:31)
[2019-10-25 07:20] LABS: BASO % 1.1 % (0-2.0); EOS % 2.7 % (0-4.5); HEMATOCRIT 39.7 % (35.4-49); HEMOGLOBIN 14.1 GM/dL (11.7-16.9); MCHC 35.4 g/dl (32.0-35.9); MEAN CELL VOLUME 96.1 fl (80-96); MEAN PLT VOLUME 7.9 fl (7.5-11.1); NEUT % 68.2 % (42.8-82.8); PLATELET COUNT 338 K/MM3 (134-434); RBC 4.14 M/mm3 (4.00-5.60); RDW 13.5 % (11.9-15.9); WHITE BLOOD COUNT 7.3 K/mm3 (4.0-10.0)
[2019-10-25 07:42] LABS: BLOOD UREA NITROGEN 17.8 mg/dL (7-18); CALCIUM 9.9 mg/dL (8.5-10.1); CREATININE 0.6 mg/dL (0.55-1.3); MAGNESIUM 2.1 mg/dL (1.8-2.4); POTASSIUM 3.3 mmol/L (3.5-5.1)
[2019-10-25] MEDS: ENOXAPARIN NA (PORCINE) 40 MG/0.4 ML DISP.SYRIN SQ SCH (11:10)
[2019-10-25] MEDS: THIAMINE HCL 200 MG/2 ML VIAL IVPB SCH (11:11)
[2019-10-25] MEDS: FOLIC ACID 1 MG TABLET (FP) PO SCH (12:18)
[2019-10-25] MEDS: MULTIVITAMINS (DAILY MVI) TABLET (FP) PO SCH (12:18)
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
[2019-10-25] MEDS ORDERED: POTASSIUM CHLORIDE TABS 20 MEQ TABLET.ER (FP) PO ONE (16:24)
[2019-10-26] MEDS: OFLOXACIN 0.3% OPHTHALMIC SOLUTION 5 ML BOTTLE OU SCH ×5 (06:10→21:18)
--- NOTE | 2019-10-26 08:09 | PN ---
Progress Note, Physician Chief Complaint: today more alert participating in communication History of Present Illness: 54 years old male history of alcohol abuse and alcohol induced seizures presents with alcohol intoxication/withdrawal, admitted in ICU for close observation improving on alcohol withdrawal protocol. - Current Medication List Current Medications: Active Medications Chlordiazepoxide HCl (Librium -) 10 mg PO Q8H PRN PRN Reason: WITHDRAWAL(CONT SUBST) Last Admin: 10/24/19 21:18 Dose: 10 mg Enoxaparin Sodium (Lovenox -) 40 mg SQ DAILY [facility] Last Admin: 10/25/19 11:10 Dose: 40 mg Folic Acid (Folic Acid -) 1 mg PO DAILY [facility] Last Admin: 10/25/19 12:18 Dose: 1 mg Multivitamins/Minerals/Vitamin C (Tab-A-Vit -) 1 tab PO DAILY [facility] Last Admin: 10/25/19 12:18 Dose: 1 tab Ofloxacin (Ocuflox 0.3% Eye Drops -) 1 drop OU Q4HWA [facility] Last Admin: 10/26/19 06:10 Dose: 1 drop Thiamine HCl (Vitamin B1 Injection -) 200 mg IVPB DAILY [facility] Last Admin: 10/25/19 11:11 Dose: 200 mg - Objective Vital Signs: Vital Signs Temperature 98.2 F 10/26/19 07:25 Pulse Rate 72 10/26/19 07:25 Respiratory Rate 20 10/26/19 07:25 Blood Pressure 122/82 10/26/19 07:25 O2 Sat by Pulse Oximetry (%) 97 10/25/19 09:00 Middle-aged man more alert but disoriented HEENT; mucous membranes moist, no anemia, no jaundice, PERRLA, no nystagmus Neck: No JVD, supple, no bruit, thyroid palpably normal, normal carotid pulsations. Chest: Nontender, clear to auscultation bilaterally CVS: S1-S2 regular no murmur/gallop/rub Abdomen: Nondistended, soft, bowel sounds present. 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 Labs: CBC, BMP 10/25/19 06:35 INR, PTT INR 0.92 (0.83-1.09) 10/16/19 18:18 Problem List - Problems (1) Alcohol dependence with withdrawal Assessment/Plan: Continue alcohol withdrawal protocol, on PRN lorazepam continue, Librium 10 mg 3 times daily as needed, folic acid,, needs evaluation by PT for possible placement, thiamine, seizure precautions and close observation for DTs BMP daily Problems reviewed: Yes Code(s): F10.239 - ALCOHOL DEPENDENCE WITH WITHDRAWAL, UNSPECIFIED Qualifiers: Complication of substance-induced condition: uncomplicated Qualified Code(s ): F10.230 - Alcohol dependence with withdrawal, uncomplicated (2) History of seizure Assessment/Plan: Observe closely for alcohol withdrawal seizures Problems reviewed: Yes Code(s): Z87.898 - PERSONAL HISTORY OF OTHER SPECIFIED CONDITIONS (3) Hypokalemia Assessment/Plan: Repleted follow-up BMP level. Code(s): E87.6 - HYPOKALEMIA (4) Ataxia Assessment/Plan: Chronic due to alcoholism Problems reviewed: Yes Code(s): R27.0 - ATAXIA, UNSPECIFIED
[2019-10-26 08:18] LABS: BLOOD UREA NITROGEN 20.7 mg/dL (7-18); CALCIUM 9.6 mg/dL (8.5-10.1); CREATININE 0.6 mg/dL (0.55-1.3); POTASSIUM 3.7 mmol/L (3.5-5.1)
[2019-10-26] MEDS ORDERED: PT OWN MED DRAWER 7, Y5N ONE (09:51)
[2019-10-26] MEDS: MULTIVITAMINS (DAILY MVI) TABLET (FP) PO SCH (09:53)
[2019-10-26] MEDS: FOLIC ACID 1 MG TABLET (FP) PO SCH (09:53)
[2019-10-26] MEDS: ENOXAPARIN NA (PORCINE) 40 MG/0.4 ML DISP.SYRIN SQ SCH (09:54)
[2019-10-26] MEDS: THIAMINE HCL 200 MG/2 ML VIAL IVPB SCH (09:54)
[2019-10-26] MEDS ORDERED: chlordiazePOXIDE HCL 10 MG CAPSULE PO PRN (12:23)
[2019-10-27] MEDS: OFLOXACIN 0.3% OPHTHALMIC SOLUTION 5 ML BOTTLE OU SCH ×5 (05:29→21:25)
[2019-10-27] MEDS: ENOXAPARIN NA (PORCINE) 40 MG/0.4 ML DISP.SYRIN SQ SCH (09:33)
[2019-10-27] MEDS: FOLIC ACID 1 MG TABLET (FP) PO SCH (09:33)
[2019-10-27] MEDS: MULTIVITAMINS (DAILY MVI) TABLET (FP) PO SCH (09:33)
--- NOTE | 2019-10-27 11:02 | PN ---
Progress Note, Physician Chief Complaint: Patient is more alert hemodynamically stable History of Present Illness: 54 years old male history of alcohol abuse and alcohol induced seizures presents with alcohol intoxication/withdrawal, admitted in ICU for close observation improving on alcohol withdrawal protocol now on Librium 10 mg twice daily as needed - Current Medication List Current Medications: Active Medications Chlordiazepoxide HCl (Librium -) 10 mg PO BID [facility] Enoxaparin Sodium (Lovenox -) 40 mg SQ DAILY [facility] Last Admin: 10/27/19 09:33 Dose: 40 mg Folic Acid (Folic Acid -) 1 mg PO DAILY [facility] Last Admin: 10/27/19 09:33 Dose: 1 mg Multivitamins/Minerals/Vitamin C (Tab-A-Vit -) 1 tab PO DAILY [facility] Last Admin: 10/27/19 09:33 Dose: 1 tab Ofloxacin (Ocuflox 0.3% Eye Drops -) 1 drop OU Q4HWA [facility] Last Admin: 10/27/19 09:34 Dose: 1 drop Thiamine HCl (Vitamin B1 -) 100 mg PO DAILY [facility] - Objective Vital Signs: Vital Signs Temperature 98 F 10/27/19 07:08 Pulse Rate 64 10/27/19 07:08 Respiratory Rate 20 10/27/19 07:08 Blood Pressure 106/68 10/27/19 07:08 O2 Sat by Pulse Oximetry (%) 99 10/26/19 21:00 Middle-aged man more alert but disoriented HEENT; mucous membranes moist, no anemia, no jaundice, PERRLA, no nystagmus Neck: No JVD, supple, no bruit, thyroid palpably normal, normal carotid pulsations. Chest: Nontender, clear to auscultation bilaterally CVS: S1-S2 regular no murmur/gallop/rub Abdomen: Nondistended, soft, bowel sounds present. 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, BMP 10/25/19 06:35 10/26/19 07:05 INR, PTT INR 0.92 (0.83-1.09) 10/16/19 18:18 Problem List - Problems (1) Alcohol dependence with withdrawal Assessment/Plan: Continue alcohol withdrawal protocol, on PRN lorazepam continue, Librium 10 mg twice daily as needed, folic acid,, needs evaluation by PT for possible placement, thiamine, seizure precautions and close observation for DTs BMP daily Code(s): F10.239 - ALCOHOL DEPENDENCE WITH WITHDRAWAL, UNSPECIFIED Qualifiers: Complication of substance-induced condition: uncomplicated Qualified Code(s ): F10.230 - Alcohol dependence with withdrawal, uncomplicated (2) History of seizure Assessment/Plan: Observe closely for alcohol withdrawal seizures Code(s): Z87.898 - PERSONAL HISTORY OF OTHER SPECIFIED CONDITIONS (3) Ataxia Assessment/Plan: Chronic due to alcoholism Code(s): R27.0 - ATAXIA, UNSPECIFIED
[2019-10-27] MEDS: THIAMINE HCL 200 MG/2 ML VIAL IVPB SCH (11:53)
[2019-10-27] MEDS ORDERED: chlordiazePOXIDE HCL 10 MG CAPSULE PO PRN (22:00)
[2019-10-28] MEDS: OFLOXACIN 0.3% OPHTHALMIC SOLUTION 5 ML BOTTLE OU SCH ×3 (06:05→14:27)
--- NOTE | 2019-10-28 08:24 | PN ---
Progress Note, Physician Chief Complaint: Patient is more alert hemodynamically stable History of Present Illness: 54 years old male history of alcohol abuse and alcohol induced seizures presents with alcohol intoxication/withdrawal, admitted in ICU for close observation improving on alcohol withdrawal protocol now on Librium 10 mg twice daily as needed - Current Medication List Current Medications: Active Medications Chlordiazepoxide HCl (Librium -) 10 mg PO Q12H PRN PRN Reason: WITHDRAWAL(CONT SUBST) Enoxaparin Sodium (Lovenox -) 40 mg SQ DAILY [facility] Last Admin: 10/27/19 09:33 Dose: 40 mg Folic Acid (Folic Acid -) 1 mg PO DAILY [facility] Last Admin: 10/27/19 09:33 Dose: 1 mg Multivitamins/Minerals/Vitamin C (Tab-A-Vit -) 1 tab PO DAILY [facility] Last Admin: 10/27/19 09:33 Dose: 1 tab Ofloxacin (Ocuflox 0.3% Eye Drops -) 1 drop OU Q4HWA [facility] Last Admin: 10/28/19 06:05 Dose: 1 drop Thiamine HCl (Vitamin B1 -) 100 mg PO DAILY [facility] - Objective Vital Signs: Vital Signs Temperature 98.2 F 10/28/19 06:48 Pulse Rate 48 L 10/28/19 06:48 Respiratory Rate 20 10/28/19 06:48 Blood Pressure 136/74 10/28/19 06:48 O2 Sat by Pulse Oximetry (%) 99 10/27/19 21:00 Middle-aged man more alert but disoriented HEENT; mucous membranes moist, no anemia, no jaundice, PERRLA, no nystagmus Neck: No JVD, supple, no bruit, thyroid palpably normal, normal carotid pulsations. Chest: Nontender, clear to auscultation bilaterally CVS: S1-S2 regular no murmur/gallop/rub Abdomen: Nondistended, soft, bowel sounds present. 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 Labs: Problem List - Problems (1) Alcohol dependence with withdrawal Assessment/Plan: Continue alcohol withdrawal protocol, on PRN lorazepam continue, Librium 10 mg twice daily as needed, folic acid,, needs evaluation by PT for possible placement, thiamine, seizure precautions and close observation for DTs BMP daily Code(s): F10.239 - ALCOHOL DEPENDENCE WITH WITHDRAWAL, UNSPECIFIED Qualifiers: Complication of substance-induced condition: uncomplicated Qualified Code(s ): F10.230 - Alcohol dependence with withdrawal, uncomplicated (2) History of seizure Assessment/Plan: Observe closely for alcohol withdrawal seizures Code(s): Z87.898 - PERSONAL HISTORY OF OTHER SPECIFIED CONDITIONS (3) Ataxia Assessment/Plan: Chronic due to alcoholism Code(s): R27.0 - ATAXIA, UNSPECIFIED
[2019-10-28 08:31] LABS: BASO % 1.6 % (0-2.0); HEMOGLOBIN 13.8 GM/dL (11.7-16.9); LYMPH % 21.3 % (8-40); MCH 34.2 pg (25.7-33.7); MCHC 35.5 g/dl (32.0-35.9); MEAN CELL VOLUME 96.5 fl (80-96); MEAN PLT VOLUME 8.1 fl (7.5-11.1); MONO % 9.2 % (3.8-10.2); NEUT % 63.9 % (42.8-82.8); PLATELET COUNT 388 K/MM3 (134-434); RBC 4.04 M/mm3 (4.00-5.60); RDW 13.2 % (11.9-15.9)
[2019-10-28 08:58] LABS: ALBUMIN 3.8 g/dl (3.4-5.0); BILIRUBIN,TOTAL 0.6 mg/dL (0.2-1); BLOOD UREA NITROGEN 12.2 mg/dL (7-18); CALCIUM 9.8 mg/dL (8.5-10.1); CREATININE 0.7 mg/dL (0.55-1.3); POTASSIUM 3.7 mmol/L (3.5-5.1); TOT PROT 7.1 g/dl (6.4-8.2)
[2019-10-28] MEDS ORDERED: THIAMINE HCL 100 MG TABLET (FP) PO SCH (10:00)
[2019-10-28] MEDS: MULTIVITAMINS (DAILY MVI) TABLET (FP) PO SCH (10:52)
[2019-10-28] MEDS: FOLIC ACID 1 MG TABLET (FP) PO SCH (10:52)
[2019-10-28] MEDS: ENOXAPARIN NA (PORCINE) 40 MG/0.4 ML DISP.SYRIN SQ SCH (10:52)
[2019-10-28 14:36] VITALS: BP 127/86; PULSE 67; TEMP 98.4
[2019-10-28 15:21] VITALS: BMI 25.9
--- NOTE | 2019-10-28 15:37 | DS ---
Physical Examination Vital Signs: Vital Signs Temperature 98.4 F 10/28/19 14:00 Pulse Rate 67 10/28/19 14:00 Respiratory Rate 18 10/28/19 14:00 Blood Pressure 127/86 10/28/19 14:00 O2 Sat by Pulse Oximetry (%) 98 10/28/19 10:00 General: Middle-aged man, disheveled sleeping, comfortable, not in distress HEENT; mucous membranes moist, no anemia, no jaundice, PERRLA, no nystagmus Neck: No JVD, supple, no bruit, thyroid palpably normal, normal carotid pulsations. Chest: Nontender, clear to auscultation bilaterally CVS: S1-S2 regular no murmur/gallop/rub Abdomen: Nondistended, soft, bowel sounds present. 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 Transferred to floor gradually improved, evaluted by PT not a candidate for [facility] refused ETOH rehab program, will be Dc home Condition: Guarded - Instructions Diet, Activity, Other Instructions: Regular Diet Educated and counselled for Alcohal abstinence and out patient ETOH Rehab program.. Patient is evaluated by Physical therapist recommended out patient Physical Therapy for Giat stability at base line patient ambulates with a Cane Disposition: HOME - Home Medications Comprehensive Discharge Medication List: Ambulatory Orders Folic Acid - 1 mg PO DAILY tablet 10/28/19 Multivitamins [Multivit ([facility] Formulary)] 1 tab PO DAILY tab 10/28/19 Ofloxacin 0.3% Ophth Soln [Ocuflox -] 1 drop OU Q4HWA drops 10/28/19 Thiamine HCl [Vitamin B1 -] 100 mg PO DAILY tablet 10/28/19 Prescription Drug Monitoring Program (I-STOP) results: I-STOP reviewed and no issues identified
== END 2019-10-28 16:10 | disposition home or self-care (01) | DRG 775 ==
LOC: JER 16:49 → JERBED 20:00 → JICU 10-17 00:36 → J8W 10-21 17:14
PROVIDERS: ADMIT Internal Medicine; ATTEND Internal Medicine
PROC: HZ2ZZZZ Detoxification Services for Substance Abuse Treatment (ICD-10-PCS; principal; 2019-10-16)
DX: F10.221 Alcohol dependence with intoxication delirium (principal); R44.1 Visual hallucinations; F10.231 Alcohol dependence with withdrawal delirium; E83.39 Other disorders of phosphorus metabolism; E83.52 Hypercalcemia; E83.42 Hypomagnesemia; D69.6 Thrombocytopenia, unspecified; E87.6 Hypokalemia; J96.00 Acute respiratory failure, unspecified whether with hypoxia or hypercapnia; D64.9 Anemia, unspecified; J96.21 Acute and chronic respiratory failure with hypoxia; J96.22 Acute and chronic respiratory failure with hypercapnia; F41.9 Anxiety disorder, unspecified; G47.00 Insomnia, unspecified; M16.0 Bilateral primary osteoarthritis of hip; R27.0 Ataxia, unspecified
CPT/HCPCS: 36415; 36600; 70450-TC; 71045-TC-FY; 72125-TC; 80048; 80053; 80307; 81003; 82140; 82375; 82693; 82803; 83036; 83050; 83605; 83735; 83970; 84100; 84443; 85025; 85027; 85610; 87086; 93005; 93010; 97116-GP; 97161-GP; 99285-25; G0480; J7030